=== PATIENT | male | born 1960 | race Caucasian/White ===

== ENCOUNTER 2018-09-06 18:22 | Observation (INO) | payer MEDICARE ==
--- NOTE | 2018-09-06 18:29 | PDOC ---
Rapid Medical Evaluation Time Seen by Provider: 09/06/18 18:28 Medical Evaluation: Allergies Allergy/AdvReac Type Severity Reaction Status Date / Time Penicillins Allergy Verified 06/19/11 10:15 09/06/18 18:28 I have performed a brief in-person evaluation of this patient. The patient presents with a chief complaint of: Dizziness. Was seen at [facility] yesterday for same and prescribed meclizine but states he feels worse now. No AGUAYO, blurry vision, slurred speech, focal weakness, CP or SOB Pertinent physical exam findings:Stable and in NAD I have ordered the following:labs The patient will proceed to the ED for further evaluation. 09/06/18 18:32 Discharge Disposition - Diagnosis Dizziness - Referrals - Patient Instructions - Post Discharge Activity
[2018-09-06 20:03] LABS: EPI CELLS 1.4 /HPF (0-5/HPF); HYALINE CASTS 6 /lpf (0-8); URINE APPEARANCE CLEAR; URINE BACTERIA 10.3 /hpf (NEGATIVE); URINE BILIRUBIN NEGATIVE (NEGATIVE); URINE COLOR YELLOW; URINE GLUCOSE (UA) 2+ (NEGATIVE); URINE KETONE TRACE (NEGATIVE); URINE LEUK ESTERASE NEGATIVE (NEGATIVE); URINE NITRITE NEGATIVE (NEGATIVE); URINE PROTEIN 2+ (NEGATIVE); URINE RBC 1 /hpf (0-4); URINE UROBILINOGEN 0.2 mg/dL (0.2-1.0); URINE WBC 2 /hpf (0-5)
[2018-09-06 20:30] LABS: ALBUMIN 3.9 g/dl (3.4-5.0); ALK PHOS 81 U/L (45-117); ANION GAP 12 MMOL/L (8-16); BILIRUBIN,TOTAL 0.3 mg/dL (0.2-1); BLOOD UREA NITROGEN 14.1 mg/dL (7-18); CALCIUM 9.6 mg/dL (8.5-10.1); CHLORIDE 98 mmol/L (98-107); CO2 27 mmol/L (21-32); CREATININE 1.2 mg/dL (0.55-1.3); GLUCOSE,RANDOM 277 mg/dL (74-106); POTASSIUM 4.1 mmol/L (3.5-5.1); SGOT/AST 11 U/L (15-37); SGPT/ALT 32 U/L (13-61); SODIUM 137 mmol/L (136-145); TOT PROT 7.3 g/dl (6.4-8.2)
[2018-09-06 21:18] LABS: HEMATOCRIT 43.9 % (35.4-49); HEMOGLOBIN 14.7 GM/dL (11.7-16.9); MCH 30.7 pg (25.7-33.7); MCHC 33.6 g/dl (32.0-35.9); MEAN CELL VOLUME 91.3 fl (80-96); PLATELET COUNT 290 K/MM3 (134-434); RBC 4.81 M/mm3 (4.00-5.60); RDW 12.7 % (11.9-15.9); WHITE BLOOD COUNT 7.7 K/mm3 (4.0-10.0)
[2018-09-06 21:19] LABS: EOS % 0.1 % (0-4.5); LYMPH % 17.5 % (8-40); MEAN PLT VOLUME 8.2 fl (7.5-11.1)
[2018-09-06 21:20] LABS: BASO % 0.4 % (0-2.0)
[2018-09-06] MEDS ORDERED: SODIUM CHLORIDE 1,000 ML IV STA (21:36)
--- NOTE | 2018-09-06 22:09 | PN ---
Teaching Attending Note Name of Resident: Isaac Sosa ATTENDING PHYSICIAN STATEMENT I saw and evaluated the patient. I reviewed the resident's note and discussed the case with the resident. I agree with the resident's findings and plan as documented. SUBJECTIVE: Patient is a 58 year old man with PMH of HTN, NIDDM, CAD/SC (5 stents), carpal tunnel syndrome and obesity who presents with a chief complaint of dizziness. Was seen at [facility] yesterday for same and prescribed meclizine but states he feels worse now. No headache, blurry vision, slurred speech, focal weakness, chest pain or SOB. Patient used to be a mechanic industrial truck, but stopped due to carpal tunnel syndrome and is now on social security disability. OBJECTIVE: Alert and orthostatic Vital Signs Period Temp Pulse Resp BP Sys/Rust Pulse Ox Last 24 Hr 98.4 F 78-103 18 123-169/88-94 97-98 HEENT: No Jaundice, eye redness or discharge, PERRLA, EOMI. Normocephalic, atraumatic. External ears are normal and hearing is grossly intact. No nasal discharge. Neck: Supple, nontender. No palpable adenopathy or thyromegaly. No JVD Chest: Good effort. Clear to auscultation and percussion. Heart: Regular. No S3, rub or murmur Abdomen: Not distended, soft, nontender and no HSM. No rebound or guarding. Normal bowel sounds. Ext: Peripheral pulses intact. No leg edema. Skin: Warm and dry. No petechiae, rash or ecchymosis. Neuro: Alert. Oriented x3. CN 2-12 grossly intact. Sensation grossly intact in all four extremities and DTR are symmetric. Unsteady gait. Psych: Appropriate mood and affect. Good insight. Current Medications Generic Name Dose Route Start Last Admin Trade Name Freq PRN Reason Stop Dose Admin Sodium Chloride 1,000 mls @ 1,000 mls/hr 09/06/18 21:36 09/06/18 21:59 Normal Saline - IV 09/06/18 22:35 1,000 mls/hr ASDIR STA Administration Home Medications Medication Instructions Recorded Carvedilol [Coreg -] 25 mg PO BID 09/06/18 Clopidogrel Bisulfate [Plavix -] 75 mg PO DAILY 09/06/18 Glipizide [Glucotrol Xl] 10 mg PO BID 09/06/18 Hydrochlorothiazide [Hctz -] 12.5 mg PO DAILY 09/06/18 Lisinopril [Prinivil] 20 mg PO DAILY 09/06/18 Meclizine HCl [Antivert -] 25 mg PO TID PRN 09/06/18 Metformin HCl [Glucophage] 1,000 mg PO BID 09/06/18 Abnormal Lab Results 09/06/18 09/06/18 19:30 19:30 Random Glucose 277 H AST 11 L Ur Specific [place] 1.037 H Urine Protein 2+ H Urine Glucose (UA) 2+ H Urine Ketones Trace H ASSESSMENT AND PLAN: 1. Dizziness - Cause unclear. No acute abnormality on noncontrast head CT scan and CXR. EKG is NSR with no significant ST-T wave changes. Getting IV NS and will hold antihypertensive drugs for now. Continue meclizine. Will get MRI/MRA of brain, carotid doppler, ECHO and monitor him on telemetry. 2. Uncontrolled DM For now, we will hold the home diabetes drugs and implement sliding scale insulin regimen. Provide comprehensive diabetes care with patient teaching and counseling about the importance of adherence to prescribed diabetes regimen, euglycemia, eye care and foot care. 3. Obesity Counseled on the risks associated with obesity. Will provide patient all the necessary assistance, counseling and positive reinforcement to facilitate weight loss. Consult sales administration specialist. 4. Hypertension - Restart suitable outpatient antihypertensive drugs when clinically appropriate. Increase Lisinopril to 20 mg bid in view of proteinuria. Refer to nephrology for outpatient workup for proteinuria. Get spot urine protein/creatinine ratio. Revise regimen to ensure good BP control. Nonpharmacologic measures to control hypertension like weight loss, salt restriction and exercise discussed. 5. DVT prophylaxis - Lovenox 40 mg SQ q 24 hours. 6. Advance directives - Full code
--- NOTE | 2018-09-06 23:14 | PDOC ---
History of Present Illness - General Chief Complaint: Lightheaded Stated Complaint: DIZZINESS Time Seen by Provider: 09/06/18 18:28 History Source: Patient Exam Limitations: No Limitations Past History - Past Medical History Allergies/Adverse Reactions: Allergies Allergy/AdvReac Type Severity Reaction Status Date / Time No Known Allergies Allergy Verified 09/06/18 18:30 Home Medications: Ambulatory Orders Carvedilol [Coreg -] 25 mg PO BID 09/06/18 Clopidogrel Bisulfate [Plavix -] 75 mg PO DAILY 09/06/18 Glipizide [Glucotrol Xl] 10 mg PO BID 09/06/18 Hydrochlorothiazide [Hctz -] 12.5 mg PO DAILY 09/06/18 Lisinopril [Prinivil] 20 mg PO DAILY 09/06/18 Meclizine HCl [Antivert -] 25 mg PO TID PRN 09/06/18 Metformin HCl [Glucophage] 1,000 mg PO BID 09/06/18 COPD: No Diabetes: Yes HTN: Yes Psychiatric Problems: No - Surgical History Abdominal Surgery: No Appendectomy: No Cardiac Surgery: No Cholecystectomy: No Lung Surgery: No Neurologic Surgery: No Orthopedic Surgery: No - Suicide/Smoking/Psychosocial Hx Smoking History: Unknown if ever smoked Have you smoked in the past 12 months: No Hx Alcohol Use: No Drug/Substance Use Hx: No Substance Use Type: None Hx Substance Use Treatment: No *Physical Exam - Vital Signs Last Vital Signs Temp Pulse Resp BP Pulse Ox 98.4 F 90 18 130/91 98 09/06/18 18:33 09/06/18 22:00 09/06/18 18:33 09/06/18 22:00 09/06/18 21:31 - Physical Exam General Appearance: No: Apparent Distress HEENT: positive: EOMI, SHANE, Other (no nystagmus noted) Respiratory/Chest: positive: Lungs Clear, Normal Breath Sounds. negative: Respiratory Distress Cardiovascular: positive: Regular Rhythm, Regular Rate, S1, S2. negative: Murmur Gastrointestinal/Abdominal: positive: Normal Bowel Sounds, Soft. 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 negative: Facial Droop, Confused, Disoriented ED Treatment Course - LABORATORY CBC & Chemistry Diagram: 09/06/18 19:30 09/06/18 19:30 - ADDITIONAL ORDERS Additional order review: Laboratory Results 09/06/18 09/06/18 19:30 19:30 Sodium 137 Potassium 4.1 Chloride 98 Carbon Dioxide 27 Anion Gap 12 BUN 14.1 Creatinine 1.2 Est GFR (CKD-EPI)AfAm 77.33 Est GFR (CKD-EPI)NonAf 66.72 Random Glucose 277 H Calcium 9.6 Total Bilirubin 0.3 AST 11 L ALT 32 Alkaline Phosphatase 81 Creatine Kinase 68 Troponin I < 0.02 Total Protein 7.3 Albumin 3.9 Urine Color Yellow Urine Appearance Clear Urine pH 5.0 Ur Specific [place] 1.037 H Urine Protein 2+ H Urine Glucose (UA) 2+ H Urine Ketones Trace H Urine Blood Trace Urine Nitrite Negative Urine Bilirubin Negative Urine Urobilinogen 0.2 Ur Leukocyte Esterase Negative Urine WBC (Auto) 2 Urine RBC (Auto) 1 Urine Casts (Auto) 6 U Epithel Cells (Auto) 1.4 Urine Bacteria (Auto) 10.3 09/06/18 19:30 RBC 4.81 MCV 91.3 MCHC 33.6 RDW 12.7 MPV 8.2 D Neutrophils % 75.0 D Lymphocytes % 17.5 D Monocytes % 7.0 Eosinophils % 0.1 D Basophils % 0.4 - RADIOLOGY Radiology Studies Ordered: Category Date Time Status HEAD CT WITHOUT CONTRAST [CT] Stat CT Scan 09/06/18 20:32 Completed - Medications Given in the ED: ED Medications Discontinued Medications Generic Name Dose Route Start Last Admin Trade Name Freq PRN Reason Stop Dose Admin Sodium Chloride 1,000 mls @ 1,000 mls/hr 09/06/18 21:36 09/06/18 21:59 Normal Saline - IV 09/06/18 22:35 1,000 mls/hr ASDIR STA Administration Medical Decision Making - Medical Decision Making 58 y/o M hx of DM, HTN, carpal tunnel, [place] 2014 s/p PCI x3, then PCI x2 again 2016 presents with lightheadedness/vertigo from yesterday (feels more like lightheadedness), worse with standing. Went to [facility] yesterday, had bloodwork and EKG done which were normal; was prescribed Meclizine but it has not been helping. States today he is now feeling off balance. Dizziness is not with head movement. Denies fever, sob, cp, abd pain, n/v, visual changes, numbness/tingling/weakness of extremities, tinnitus, hearing loss. Patient orthostatic positive - given 1L of NS Labs reviewed and unremarkable EKG shows NSR at 80 bpm, baseline a bit poor, no ST-T elevation or depression noted, no ectopy D/W neurology, Dr. Torres - agrees with admission for further evaluation; agrees with MRI of brain for further evaluation Patient admitted 09/06/18 23:10 *DC/Admit/Observation/Transfer Diagnosis at time of Disposition: Dizziness - Discharge Dispostion Condition at time of disposition: Stable Decision to Admit order: Yes - Referrals Referrals: Aleks Piper MD [Primary Care Provider] - - Patient Instructions - Post Discharge Activity
[2018-09-06] MEDS ORDERED: LORazepam 1 MG TABLET PO ONE (23:28)
--- NOTE | 2018-09-07 | HP ---
CHIEF COMPLAINT:dizziness PCP: Dr Ca HISTORY OF PRESENT ILLNESS: 58 y/o M hx of DM, HTN, carpal tunnel, [place] 2015 s/p PCI x3, then PCI x2 again 2017 presents with lightheadedness/vertigo from yesterday (feels more like lightheadedness), worse with standing. Went to [facility] yesterday, had bloodwork and EKG done which were normal; was prescribed Meclizine but it has not been helping. States today he is now feeling off balance. Dizziness is not with head movement. Denies fever, sob, cp, abd pain, n/v, visual changes, numbness/tingling/weakness of extremities, tinnitus, hearing loss. one day of dizziness and imbalance when get up and walk never happened in the past , non positional Patient orthostatic positive - given 1L of NS Labs reviewed and unremarkable EKG shows NSR at 80 bpm, baseline a bit poor, no ST-T elevation or depression noted, no ectopy D/W neurology, Dr. Torres - agrees with admission for further evaluation; agrees with MRI of brain for further evaluation ER course was notable for: (1) Head Ct No acute pathology , MRI brain pending (2)cbc , cmp (3)1 L bolus Recent Travel: denies PAST MEDICAL HISTORY: HTN , DM , CAD S/P 5 stents , carpal tunnel syndrome B/L PAST SURGICAL HISTORY: S.P 5 stent , cataract Social History: disabled since 2011 due to CTS Smoking:denies Alcohol:denies Drugs: denies Family History: Mother stroke , father DM , HTN Allergies No Known Allergies Allergy (Verified 09/06/18 18:30) HOME MEDICATIONS: Home Medications Medication Instructions Recorded Carvedilol [Coreg -] 25 mg PO BID 09/06/18 Clopidogrel Bisulfate [Plavix -] 75 mg PO DAILY 09/06/18 Glipizide [Glucotrol Xl] 10 mg PO BID 09/06/18 Hydrochlorothiazide [Hctz -] 12.5 mg PO DAILY 09/06/18 Lisinopril [Prinivil] 20 mg PO DAILY 09/06/18 Meclizine HCl [Antivert -] 25 mg PO TID PRN 09/06/18 Metformin HCl [Glucophage] 1,000 mg PO BID 09/06/18 REVIEW OF SYSTEMS CONSTITUTIONAL: Absent: fever, chills, diaphoresis, generalized weakness, malaise, loss of appetite, weight change HEENT: Absent: rhinorrhea, nasal congestion, throat pain, throat swelling, difficulty swallowing, mouth swelling, ear pain, eye pain, visual changes CARDIOVASCULAR: Absent: chest pain, syncope, palpitations, irregular heart rate, lightheadedness , peripheral edema RESPIRATORY: Absent: cough, shortness of breath, dyspnea with exertion, orthopnea, wheezing, stridor, hemoptysis GASTROINTESTINAL: Absent: abdominal pain, abdominal distension, nausea, vomiting, diarrhea, constipation, melena, hematochezia GENITOURINARY: Absent: dysuria, frequency, urgency, hesitancy, hematuria, flank pain, genital pain MUSCULOSKELETAL: Absent: myalgia, arthralgia, joint swelling, back pain, neck pain SKIN: Absent: rash, itching, pallor HEMATOLOGIC/IMMUNOLOGIC: Absent: easy bleeding, easy bruising, lymphadenopathy, frequent infections ENDOCRINE: Absent: unexplained weight gain, unexplained weight loss, heat intolerance, cold intolerance NEUROLOGIC: Absent: headache, focal weakness or paresthesias, dizziness, unsteady gait, seizure, mental status changes, bladder or bowel incontinence PSYCHIATRIC: Absent: anxiety, depression, suicidal or homicidal ideation, hallucinations. PHYSICAL EXAMINATION Vital Signs - 24 hr 09/06/18 09/06/18 09/06/18 18:22 18:33 21:27 Temperature 98.4 F Pulse Rate 83 Pulse Rate [ Apical] Pulse Rate [ 103 H 78 Right side Supine] Respiratory 18 Rate Blood Pressure 169/88 Blood Pressure 127/89 157/92 [Right side Supine] Blood Pressure [Right] O2 Sat by Pulse 97 Oximetry (%) 09/06/18 09/06/18 09/06/18 21:31 21:59 22:00 Temperature Pulse Rate Pulse Rate [ 93 H 90 Apical] Pulse Rate [ Right side Supine] Respiratory Rate Blood Pressure Blood Pressure [Right side Supine] Blood Pressure 123/94 140/90 130/91 [Right] O2 Sat by Pulse 98 Oximetry (%) GENERAL: Awake, alert, and fully oriented, in no acute distress. HEAD: Normal with no signs of trauma. EYES: Pupils equal, round and reactive to light, extraocular movements intact, sclera anicteric, conjunctiva clear. EARS, NOSE, THROAT: Ears normal, nares patent, oropharynx clear without exudates. Moist mucous membranes. NECK: Normal range of motion, supple without lymphadenopathy, JVD, or masses. LUNGS: Breath sounds equal, clear to auscultation bilaterally. No wheezes, and no crackles. No accessory muscle use. HEART: Regular rate and rhythm, normal S1 and S2 without murmur, rub or gallop. ABDOMEN: obese, Soft, nontender, not distended, normoactive bowel sounds, no guarding, no rebound, no masses. MUSCULOSKELETAL: Normal range of motion at all joints. No bony deformities or tenderness. No CVA tenderness. UPPER EXTREMITIES: 2+ pulses, warm, well-perfused. No cyanosis. No clubbing. No peripheral edema. LOWER EXTREMITIES: 2+ pulses, warm, well-perfused. No calf tenderness. No peripheral edema. NEUROLOGICAL: Cranial nerves II-XII intact. Normal speech. imbalance gait.strength 5/5 upper and lower ext ,sensation intact , uvula mid line , no facial asymmetry PSYCHIATRIC: Cooperative. Good eye contact. Appropriate mood and affect. SKIN: Warm, dry, Laboratory Results - last 24 hr 09/06/18 09/06/18 09/06/18 19:30 19:30 19:30 WBC 7.7 RBC 4.81 Hgb 14.7 Hct 43.9 MCV 91.3 MCH 30.7 MCHC 33.6 RDW 12.7 Plt Count 290 D MPV 8.2 D Absolute Neuts (auto) 5.8 Neutrophils % 75.0 D Lymphocytes % 17.5 D Monocytes % 7.0 Eosinophils % 0.1 D Basophils % 0.4 Sodium 137 Potassium 4.1 Chloride 98 Carbon Dioxide 27 Anion Gap 12 BUN 14.1 Creatinine 1.2 Est GFR (CKD-EPI)AfAm 77.33 Est GFR (CKD-EPI)NonAf 66.72 Random Glucose 277 H Calcium 9.6 Total Bilirubin 0.3 AST 11 L ALT 32 Alkaline Phosphatase 81 Creatine Kinase 68 Troponin I < 0.02 Total Protein 7.3 Albumin 3.9 Urine Color Yellow Urine Appearance Clear Urine pH 5.0 Ur Specific [place] 1.037 H Urine Protein 2+ H Urine Glucose (UA) 2+ H Urine Ketones Trace H Urine Blood Trace Urine Nitrite Negative Urine Bilirubin Negative Urine Urobilinogen 0.2 Ur Leukocyte Esterase Negative Urine WBC (Auto) 2 Urine RBC (Auto) 1 Urine Casts (Auto) 6 U Epithel Cells (Auto) 1.4 Urine Bacteria (Auto) 10.3 CBC, BMP 09/06/18 19:30 09/06/18 19:30 ASSESSMENT/PLAN: 58 year old male with h/o CAD S/P 5 stents , HTN ,DM CTS presented to ED due to oe history of ataxia not improving with meclizine admitted to tele obs for further evaluation # Ataxia likely due to dehydration/orthoststics positive , r.o TIA , r.o arrhythmia * CT head negative , follow MRI brain w.o contrast * happened when get up and walk , non positional * Brain MRI ( has 5 cardiac stent ) stent card is with pt , no contraindication for MRI , * pt has claustrophobic will give 1 mg Ativan one hour before MRI * IV fluids bolus and maintenance * cont meclizine * dex-halpek negative , no tinnitus or hearing deficiency * re evaluate after hydration * Neuro cosulted Dr Torres recommend MRI w/o contrast and will see pt in AM * fall precaution * EKG with NSR with left axis deviation and left inferior infarct age undertermined , QTC 484 * Echo and carotid doppler in AM * # DM * hold oral agents , ISS , BGM ACHS, Diabetic diet # HTN * hold HCTz * resume lisinopril in and carvedilol # CAD S.P 5 stents not on blood thinners # H.o CTS # FEN * NS @ 75 * monbitor lytes * diabetic diet # proph * dvts : scds , hep sq # dispo * Tele obs Visit type - Emergency Visit Emergency Visit: Yes ED Registration Date: 09/06/18 Care time: The patient presented to the Emergency Department on the above date and was hospitalized for further evaluation of their emergent condition. - New Patient This patient is new to me today: Yes Date on this admission: 09/07/18 - Critical Care Critical Care patient: No
[2018-09-07] MEDS ORDERED: MECLIZINE HCL 25 MG TABLET (FP) PO PRN (00:10)
[2018-09-07] MEDS: SODIUM CHLORIDE 1,000 ML IV SCH ×2 (00:34→01:12)
[2018-09-07 00:58] LABS: N-TERMINAL BNP 227.4 pg/ml (5-125)
[2018-09-07] MEDS ORDERED: INSULIN (NOVOLOG) ASPART 100 UNITS/ML 10ML VIAL ONE ×2 (03:29→05:23)
[2018-09-07] MEDS ORDERED: Insulin (LOG) Aspart 100 UNITS/ML VIAL SQ ONE (03:39)
[2018-09-07 05:08] VITALS: BMI 38.8
[2018-09-07] MEDS: INSULIN SLIDING SCALE (NOVOLOG) 1 VIAL SQ SCH ×4 (06:16→22:22)
[2018-09-07] MEDS: HEPARIN NA (PORCINE) 5,000 UNITS/ML 1ML VIAL SQ SCH ×3 (06:16→22:22)
[2018-09-07] MEDS ORDERED: INSULIN SLIDING SCALE (NOVOLOG) 1 VIAL SQ SCH (07:00)
[2018-09-07 08:31] LABS: BASO % 0.5 % (0-2.0); EOS % 0.5 % (0-4.5); HEMATOCRIT 38.2 % (35.4-49); HEMOGLOBIN 13.3 GM/dL (11.7-16.9); LYMPH % 19.4 % (8-40); MCHC 34.7 g/dl (32.0-35.9); MEAN CELL VOLUME 89.2 fl (80-96); MONO % 8.8 % (3.8-10.2); NEUT % 70.8 % (42.8-82.8); PLATELET COUNT 250 K/MM3 (134-434); RBC 4.28 M/mm3 (4.00-5.60); RDW 12.5 % (11.9-15.9); WHITE BLOOD COUNT 6.3 K/mm3 (4.0-10.0)
[2018-09-07 09:01] LABS: ALBUMIN 3.4 g/dl (3.4-5.0); BILIRUBIN,TOTAL 0.5 mg/dL (0.2-1); CALCIUM 9.1 mg/dL (8.5-10.1); CREATININE 0.9 mg/dL (0.55-1.3); MAGNESIUM 1.9 mg/dL (1.8-2.4); PHOSPHOROUS 3.9 mg/dL (2.5-4.9); POTASSIUM 3.4 mmol/L (3.5-5.1); TOT PROT 6.5 g/dl (6.4-8.2)
[2018-09-07 09:09] LABS: INR 1.14 (0.83-1.09); PROTHROMBIN TIME (PATIENT) 13.5 SEC (9.7-13.0)
[2018-09-07 09:12] LABS: ACTIVATED PTT 32.2 SECONDS (25.2-36.5)
[2018-09-07] MEDS ORDERED: PT OWN MED DRAWER 7, Y5N ONE (10:20)
--- NOTE | 2018-09-07 10:29 | EKG ---
Test Reason : Blood Pressure : / mmHG Vent. Rate : 074 BPM Atrial Rate : 074 BPM P-R Int : 174 ms QRS Dur : 104 ms QT Int : 414 ms P-R-T Axes : 020 -37 089 degrees QTc Int : 459 ms NORMAL SINUS RHYTHM LEFT AXIS DEVIATION INFERIOR-POSTERIOR INFARCT (CITED ON OR BEFORE 06-SEP-2018) ABNORMAL ECG WHEN COMPARED WITH ECG OF 07-SEP-2018 01:05, NO SIGNIFICANT CHANGE WAS FOUND Confirmed by KALIA ABDUL MD ([id number]) on 09/07/2018 10:29:14 AM Referred By: Gustavo WEBBER Confirmed By:KALIA ABDUL MD
--- NOTE | 2018-09-07 10:35 | EKG ---
Test Reason : Blood Pressure : / mmHG Vent. Rate : 072 BPM Atrial Rate : 072 BPM P-R Int : 172 ms QRS Dur : 100 ms QT Int : 400 ms P-R-T Axes : 019 -37 051 degrees QTc Int : 438 ms NORMAL SINUS RHYTHM LEFT AXIS DEVIATION MINIMAL VOLTAGE CRITERIA FOR LVH, MAY BE NORMAL VARIANT INFERIOR-POSTERIOR INFARCT (CITED ON OR BEFORE 06-SEP-2018) NONSPECIFIC ST ABNORMALITY Confirmed by KALIA ABDUL MD ([id number]) on 09/07/2018 10:35:36 AM Referred By: Confirmed By:KALIA ABDUL MD
--- NOTE | 2018-09-07 11:17 | CONSULT ---
Consult - text type - Consultation Consultation Note: CHIEF COMPLAINT:dizziness PCP: Dr Ca HISTORY OF PRESENT ILLNESS: 58 y/o M hx of DM, HTN, carpal tunnel, MD 2015 s/p PCI x3, then PCI x2 again 2017, presented to ER with lightheadedness/vertigo day prior to admission ( feels more like lightheadedness), worsens with standing. Went to [facility] day prior to admission, had labs completed and EKG completed which were normal. Pt was prescribed Meclizine but stated that it has not been helping. Pt stated on admission that he is now feeling off balance; dizziness is not with head movementn non-positional. Patient orthostatic positive. Denied fever, sob, cp, abd pain, n/v, visual changes, numbness/tingling/weakness of extremities, tinnitus, hearing loss. Patient received 1L NS bolus in ER. Head Ct completed, mild to moderate periventricular and subcortical microvascular ischemic changes. Brain MRI ordered. Carotid Doppler completed, report pending. Stated that meclezine made his symptoms worse at [facility] and therefore can avoid this medication. Discussed with family at bedside as well. Recent Travel: denies PAST MEDICAL HISTORY: HTN , DM , CAD S/P 5 stents , carpal tunnel syndrome B/L PAST SURGICAL HISTORY: S.P 5 stent , cataract Social History: disabled since 2011 due to CTS Smoking:denies Alcohol:denies Drugs: denies Family History: Mother stroke , father DM , HTN Allergies Allergies Allergy/AdvReac Type Severity Reaction Status Date / Time No Known Allergies Allergy Verified 09/06/18 18:30 Ambulatory Orders Carvedilol [Coreg -] 25 mg PO BID 09/06/18 Clopidogrel Bisulfate [Plavix -] 75 mg PO DAILY 09/06/18 Glipizide [Glucotrol Xl] 10 mg PO BID 09/06/18 Hydrochlorothiazide [Hctz -] 12.5 mg PO DAILY 09/06/18 Lisinopril [Prinivil] 20 mg PO DAILY 09/06/18 Meclizine HCl [Antivert -] 25 mg PO TID PRN 09/06/18 Metformin HCl [Glucophage] 1,000 mg PO BID 09/06/18 Active Medications Carvedilol (Coreg -) 25 mg PO BID [facility] Last Admin: 06/22/19 11:19 Dose: 25 mg Clopidogrel Bisulfate (Plavix -) 75 mg PO DAILY [facility] Last Admin: 09/07/18 11:19 Dose: 75 mg Heparin Sodium (Porcine) (Heparin -) 5,000 unit SQ TID [facility] Last Admin: 09/07/18 06:16 Dose: 5,000 unit Sodium Chloride (Normal Saline -) 1,000 mls @ 100 mls/hr IV ASDIR [facility] Last Admin: 09/07/18 00:34 Dose: Not Given Sodium Chloride (Normal Saline -) 1,000 mls @ 75 mls/hr IV ASDIR [facility] Last Admin: 09/07/18 01:12 Dose: 75 mls/hr Insulin Aspart (Novolog Vial Sliding Scale -) 1 vial SQ ACHS [facility]; Protocol Last Admin: 09/07/18 06:16 Dose: 2 units Lisinopril (Prinivil) 20 mg PO DAILY [facility] Last Admin: 09/07/18 11:19 Dose: 20 mg Meclizine HCl (Antivert -) 25 mg PO TID PRN PRN Reason: vert REVIEW OF SYSTEMS CONSTITUTIONAL: Absent: fever, chills, diaphoresis, generalized weakness, malaise, loss of appetite, weight change HEENT: Absent: rhinorrhea, nasal congestion, throat pain, throat swelling, difficulty swallowing, mouth swelling, ear pain, eye pain, visual changes CARDIOVASCULAR: Absent: chest pain, syncope, palpitations, irregular heart rate, lightheadedness , peripheral edema RESPIRATORY: Absent: cough, shortness of breath, dyspnea with exertion, orthopnea, wheezing, stridor, hemoptysis GASTROINTESTINAL: Absent: abdominal pain, abdominal distension, nausea, vomiting, diarrhea, constipation, melena, hematochezia GENITOURINARY: Absent: dysuria, frequency, urgency, hesitancy, hematuria, flank pain, genital pain MUSCULOSKELETAL: Absent: myalgia, arthralgia, joint swelling, back pain, neck pain SKIN: Absent: rash, itching, pallor HEMATOLOGIC/IMMUNOLOGIC: Absent: easy bleeding, easy bruising, lymphadenopathy, frequent infections ENDOCRINE: Absent: unexplained weight gain, unexplained weight loss, heat intolerance, cold intolerance NEUROLOGIC: Absent: headache, focal weakness or paresthesias, dizziness, unsteady gait, seizure, mental status changes, bladder or bowel incontinence PSYCHIATRIC: Absent: anxiety, depression, suicidal or homicidal ideation, hallucinations. PHYSICAL EXAMINATION Vital Signs Temperature 98.5 F 09/07/18 06:00 Pulse Rate 69 09/07/18 06:00 Respiratory Rate 20 09/07/18 06:00 Blood Pressure 162/89 09/07/18 06:00 O2 Sat by Pulse Oximetry (%) 94 L 09/07/18 04:05 GENERAL: Awake, alert, and fully oriented, in no acute distress. HEAD: Normal with no signs of trauma. EYES: Pupils equal, round and reactive to light, extraocular movements intact, sclera anicteric, conjunctiva clear. EARS, NOSE, THROAT: Ears normal, nares patent, oropharynx clear without exudates. Moist mucous membranes. NECK: Normal range of motion, supple without lymphadenopathy, JVD, or masses. LUNGS: Breath sounds equal, clear to auscultation bilaterally. No wheezes, and no crackles. No accessory muscle use. HEART: Regular rate and rhythm, normal S1 and S2 without murmur, rub or gallop. ABDOMEN: obese, Soft, nontender, not distended, normoactive bowel sounds, no guarding, no rebound, no masses. MUSCULOSKELETAL: Normal range of motion at all joints. No bony deformities or tenderness. No CVA tenderness. UPPER EXTREMITIES: 2+ pulses, warm, well-perfused. No cyanosis. No clubbing. No peripheral edema. LOWER EXTREMITIES: 2+ pulses, warm, well-perfused. No calf tenderness. No peripheral edema. NEUROLOGICAL: Cranial nerves II-XII intact. Normal speech. imbalance gait.strength 5/5 upper and lower ext ,sensation intact , uvula mid line , no facial asymmetry PSYCHIATRIC: Cooperative. Good eye contact. Appropriate mood and affect. SKIN: Warm, dry, CBCD WBC 6.3 K/mm3 (4.0-10.0) 09/07/18 07:28 RBC 4.28 M/mm3 (4.00-5.60) 09/07/18 07:28 Hgb 13.3 GM/dL (11.7-16.9) 09/07/18 07:28 Hct 38.2 % (35.4-49) 09/07/18 07:28 MCV 89.2 fl (80-96) 09/07/18 07:28 MCHC 34.7 g/dl (32.0-35.9) 09/07/18 07:28 RDW 12.5 % (11.9-15.9) 09/07/18 07:28 Plt Count 250 K/MM3 (134-434) 09/07/18 07:28 MPV 8.0 fl (7.5-11.1) 09/07/18 07:28 CMP Sodium 140 mmol/L (136-145) 09/07/18 07:28 Potassium 3.4 mmol/L (3.5-5.1) L 09/07/18 07:28 Chloride 101 mmol/L (98-107) 09/07/18 07:28 Carbon Dioxide 31 mmol/L (21-32) 09/07/18 07:28 Anion Gap 8 MMOL/L (8-16) 09/07/18 07:28 BUN 12.0 mg/dL (7-18) 09/07/18 07:28 Creatinine 0.9 mg/dL (0.55-1.3) 09/07/18 07:28 Random Glucose 230 mg/dL (74-106) H 09/07/18 07:28 Calcium 9.1 mg/dL (8.5-10.1) 09/07/18 07:28 Total Bilirubin 0.5 mg/dL (0.2-1) 09/07/18 07:28 AST 10 U/L (15-37) L 09/07/18 07:28 ALT 28 U/L (13-61) 09/07/18 07:28 Alkaline Phosphatase 72 U/L (45-117) 09/07/18 07:28 Total Protein 6.5 g/dl (6.4-8.2) 09/07/18 07:28 Albumin 3.4 g/dl (3.4-5.0) 09/07/18 07:28 CARDIAC ENZYMES Creatine Kinase 68 U/L (26-308) 09/06/18 19:30 Troponin I < 0.02 ng/ml (0.00-0.05) 09/07/18 00:15 ASSESSMENT/PLAN: 58 y/o M hx of DM, HTN, carpal tunnel, MD 2015 s/p PCI x3, then PCI x2 again 2017, presented to ER with lightheadedness/vertigo day prior to admission ( feels more like lightheadedness), worsens with standing. Went to [place] day prior to admission, had labs completed and EKG completed which were normal. Pt was prescribed Meclizine but stated that it has not been helping. Pt stated on admission that he is now feeling off balance; dizziness is not with head movementn non-positional. Patient orthostatic positive. Denied fever, sob, cp, abd pain, n/v, visual changes, numbness/tingling/weakness of extremities, tinnitus, hearing loss. Patient received 1L NS bolus in ER. Head Ct completed, mild to moderate periventricular and subcortical microvascular ischemic changes. Brain MRI ordered. Carotid Doppler completed, report pending. COntinue hydration, physical therapy. Fall precautions. Avoid meclezine though would think it would help. Can try low dose valium 2mg which can help with dizzyness if symptoms don't improve.
[2018-09-07] MEDS: CLOPIDOGREL BISULFATE 75 MG TABLET (FP) PO SCH (11:19)
[2018-09-07] MEDS: CARVEDILOL 25 MG TABLET (FP) PO SCH ×2 (11:19→22:22)
[2018-09-07] MEDS: LISINOPRIL 20 MG TABLET (FP) PO SCH (11:19)
--- NOTE | 2018-09-07 11:52 | PN ---
Progress Note, Physician Chief Complaint: Dizziness Ataxia HTN History of Present Illness: Previous notes and events reviewed awake and alert NAD Carotid US done pending Brain MRI continue to have dizziness while standing denies chest pain or SOB trop neg x 2 - Current Medication List Current Medications: Active Medications Carvedilol (Coreg -) 25 mg PO BID [facility] Last Admin: 09/07/18 11:19 Dose: 25 mg Clopidogrel Bisulfate (Plavix -) 75 mg PO DAILY [facility] Last Admin: 09/07/18 11:19 Dose: 75 mg Heparin Sodium (Porcine) (Heparin -) 5,000 unit SQ TID [facility] Last Admin: 09/07/18 06:16 Dose: 5,000 unit Sodium Chloride (Normal Saline -) 1,000 mls @ 100 mls/hr IV ASDIR [facility] Last Admin: 09/07/18 00:34 Dose: Not Given Sodium Chloride (Normal Saline -) 1,000 mls @ 75 mls/hr IV ASDIR [facility] Last Admin: 09/07/18 01:12 Dose: 75 mls/hr Insulin Aspart (Novolog Vial Sliding Scale -) 1 vial SQ ACHS [facility]; Protocol Last Admin: 09/07/18 06:16 Dose: 2 units Lisinopril (Prinivil) 20 mg PO DAILY [facility] Last Admin: 09/07/18 11:19 Dose: 20 mg Meclizine HCl (Antivert -) 25 mg PO TID PRN PRN Reason: vert - Objective Vital Signs: Vital Signs Temperature 98.5 F 09/07/18 06:00 Pulse Rate 69 09/07/18 06:00 Respiratory Rate 20 09/07/18 06:00 Blood Pressure 162/89 09/07/18 06:00 O2 Sat by Pulse Oximetry (%) 94 L 09/07/18 04:05 Constitutional: Yes: No Distress, Calm Eyes: Yes: Conjunctiva Clear HENT: Yes: Atraumatic Cardiovascular: Yes: Regular Rate and Rhythm Respiratory: Yes: Regular, CTA Bilaterally Gastrointestinal: Yes: Normal Bowel Sounds, Soft Musculoskeletal: Yes: Muscle Weakness Extremities: Yes: WNL Edema: No Neurological: Yes: Alert, Oriented Psychiatric: Yes: Alert, Oriented Labs: CBC, BMP 09/07/18 07:28 09/07/18 07:28 INR, PTT INR 1.14 (0.83-1.09) H 09/07/18 07:28 - ....Imaging Cat Scan: Report Reviewed Problem List - Problems (1) HTN (hypertension) Assessment/Plan: -Carvedilol, Lisinopril -low Na diet Code(s): I10 - ESSENTIAL (PRIMARY) HYPERTENSION (2) Diabetes mellitus Assessment/Plan: -BGM ACHS -ISS -HgA1c 7.4% -holding oral agents--will resume on discharge -diabetic diet Code(s): E11.9 - TYPE 2 DIABETES MELLITUS WITHOUT COMPLICATIONS (3) Dizziness Assessment/Plan: -Neurology on board -meclizine -Head CT scan negative for acute pathology -Carotid US done, pending official read -Brain MRI/MRA and Neck MRI ordered Code(s): R42 - DIZZINESS AND GIDDINESS (4) CAD (coronary artery disease) Assessment/Plan: -Plavix Code(s): I25.10 - ATHSCL HEART DISEASE OF [place] CORONARY ARTERY W/O ANG PCTRS Assessment/Plan see problem list dvt ppx
--- NOTE | 2018-09-07 12:44 | EKG ---
Test Reason : Blood Pressure : / mmHG Vent. Rate : 080 BPM Atrial Rate : 080 BPM P-R Int : 176 ms QRS Dur : 102 ms QT Int : 420 ms P-R-T Axes : 023 -46 034 degrees QTc Int : 484 ms POOR DATA QUALITY, INTERPRETATION MAY BE ADVERSELY AFFECTED NORMAL SINUS RHYTHM LEFT AXIS DEVIATION MINIMAL VOLTAGE CRITERIA FOR LVH, MAY BE NORMAL VARIANT INFERIOR-POSTERIOR INFARCT , AGE UNDETERMINED ABNORMAL ECG NO PREVIOUS ECGS AVAILABLE Confirmed by KALIA ABDUL MD ([id number]) on 09/07/2018 12:44:21 PM Referred By: Confirmed By:KALIA ABDUL MD
--- NOTE | 2018-09-07 17:26 | HOSP ---
Physical Examination Vital Signs: Vital Signs Temperature 97.8 F 09/07/18 14:00 Pulse Rate 76 09/07/18 14:00 Respiratory Rate 20 09/07/18 09:00 Blood Pressure 157/92 09/07/18 14:00 O2 Sat by Pulse Oximetry (%) 94 L 09/07/18 09:00 Labs: CBC, BMP 09/07/18 07:28 09/07/18 07:28 Hospitalist Encounter Assessment: Elevated BP 172/101 -reordered home med HCTZ 12.5mg now and to continue daily -will monitor
[2018-09-07] MEDS ORDERED: HYDROCHLOROTHIAZIDE 12.5 MG CAPSULE (FP) PO SCH (17:30)
[2018-09-08] MEDS: SODIUM CHLORIDE 1,000 ML IV SCH ×2 (01:01→09:39)
[2018-09-08] MEDS: LISINOPRIL 20 MG TABLET (FP) PO SCH ×2 (06:37→09:42)
[2018-09-08] MEDS: HEPARIN NA (PORCINE) 5,000 UNITS/ML 1ML VIAL SQ SCH ×3 (06:37→21:58)
[2018-09-08] MEDS: INSULIN SLIDING SCALE (NOVOLOG) 1 VIAL SQ SCH ×4 (06:38→21:58)
[2018-09-08 07:31] LABS: HEMATOCRIT 40.1 % (35.4-49); HEMOGLOBIN 13.8 GM/dL (11.7-16.9); MCH 30.7 pg (25.7-33.7); MCHC 34.4 g/dl (32.0-35.9); PLATELET COUNT 264 K/MM3 (134-434); RDW 12.4 % (11.9-15.9); WHITE BLOOD COUNT 6.3 K/mm3 (4.0-10.0)
[2018-09-08 07:58] LABS: ALBUMIN 3.6 g/dl (3.4-5.0); BILIRUBIN,TOTAL 0.6 mg/dL (0.2-1); BLOOD UREA NITROGEN 12.5 mg/dL (7-18); CREATININE 0.9 mg/dL (0.55-1.3); POTASSIUM 3.5 mmol/L (3.5-5.1); TOT PROT 6.8 g/dl (6.4-8.2)
[2018-09-08] MEDS: CLOPIDOGREL BISULFATE 75 MG TABLET (FP) PO SCH (09:41)
[2018-09-08] MEDS: CARVEDILOL 25 MG TABLET (FP) PO SCH ×2 (09:41→21:58)
[2018-09-08] MEDS: diazePAM 2 MG TABLET PO PRN ×2 (09:48→17:49)
[2018-09-08] MEDS: HYDROCHLOROTHIAZIDE 12.5 MG CAPSULE (FP) PO SCH (10:28)
--- NOTE | 2018-09-08 10:54 | PN ---
Progress Note, Physician Chief Complaint: Dizziness Ataxia HTN History of Present Illness: Previous notes and events reviewed awake and alert NAD continue to have dizziness while standing denies chest pain or SOB trop neg x 2 - Current Medication List Current Medications: Active Medications Carvedilol (Coreg -) 25 mg PO BID [facility] Last Admin: 09/08/18 09:41 Dose: 25 mg Clopidogrel Bisulfate (Plavix -) 75 mg PO DAILY [facility] Last Admin: 09/08/18 09:41 Dose: 75 mg Diazepam (Valium -) 2 mg PO Q8H PRN PRN Reason: DIZZYNESS Last Admin: 09/08/18 09:48 Dose: 2 mg Heparin Sodium (Porcine) (Heparin -) 5,000 unit SQ TID [facility] Last Admin: 09/08/18 06:37 Dose: 5,000 unit Hydrochlorothiazide (Hctz -) 12.5 mg PO DAILY [facility] Last Admin: 09/08/18 10:28 Dose: 12.5 mg Sodium Chloride (Normal Saline -) 1,000 mls @ 100 mls/hr IV ASDIR [facility] Last Admin: 09/08/18 01:01 Dose: Not Given Sodium Chloride (Normal Saline -) 1,000 mls @ 75 mls/hr IV ASDIR [facility] Last Admin: 09/08/18 09:39 Dose: Not Given Insulin Aspart (Novolog Vial Sliding Scale -) 1 vial SQ ACHS [facility]; Protocol Last Admin: 09/08/18 06:38 Dose: 4 units Lisinopril (Prinivil) 20 mg PO DAILY [facility] Last Admin: 09/08/18 09:42 Dose: Not Given Meclizine HCl (Antivert -) 25 mg PO TID PRN PRN Reason: vert - Objective Vital Signs: Vital Signs Temperature 98.0 F 09/08/18 06:15 Pulse Rate 67 09/08/18 06:15 Respiratory Rate 20 09/08/18 09:00 Blood Pressure 180/97 H 09/08/18 06:15 O2 Sat by Pulse Oximetry (%) 98 09/08/18 09:00 Constitutional: Yes: No Distress, Calm Eyes: Yes: Conjunctiva Clear HENT: Yes: Atraumatic Cardiovascular: Yes: Regular Rate and Rhythm Respiratory: Yes: Regular, CTA Bilaterally Gastrointestinal: Yes: Normal Bowel Sounds, Soft Musculoskeletal: Yes: WNL Extremities: Yes: WNL Edema: No Neurological: Yes: Alert, Oriented Psychiatric: Yes: Alert, Oriented Labs: CBC, BMP 09/08/18 06:50 09/08/18 06:50 INR, PTT INR 1.14 (0.83-1.09) H 09/07/18 07:28 Problem List - Problems (1) HTN (hypertension) Assessment/Plan: -Carvedilol, Lisinopril, HCTZ -low Na diet Code(s): I10 - ESSENTIAL (PRIMARY) HYPERTENSION (2) Diabetes mellitus Assessment/Plan: -BGM ACHS -ISS -HgA1c 7.4% -holding oral agents--will resume on discharge -diabetic diet Code(s): E11.9 - TYPE 2 DIABETES MELLITUS WITHOUT COMPLICATIONS (3) Dizziness Assessment/Plan: -Neurology on board -Valium -Head CT scan negative for acute pathology -Carotid US done, pending official read Code(s): R42 - DIZZINESS AND GIDDINESS (4) CAD (coronary artery disease) Assessment/Plan: -Plavix Code(s): I25.10 - ATHSCL HEART DISEASE OF [place] CORONARY ARTERY W/O ANG PCTRS Assessment/Plan see problem list dvt ppx D/C home in AM if repeat Brain CT normal
--- NOTE | 2018-09-08 11:01 | PN ---
Progress Note (short form) - Note Progress Note: Neurology CHIEF COMPLAINT:dizziness PCP: Dr Ca HISTORY OF PRESENT ILLNESS: 58 y/o M hx of DM, HTN, carpal tunnel, [place] 2014 s/p PCI x3, then PCI x2 again 2017, presented to ER with lightheadedness/vertigo day prior to admission ( feels more like lightheadedness), worsens with standing. Went to [facility] day prior to admission, had labs completed and EKG completed which were normal. Pt was prescribed Meclizine but stated that it has not been helping. Pt stated on admission that he is now feeling off balance; dizziness is not with head movement non-positional. Patient orthostatic positive. Denied fever, sob, cp, abd pain, n/v, visual changes, numbness/tingling/weakness of extremities, tinnitus, hearing loss. Patient received 1L NS bolus in ER. Head Ct completed, mild to moderate periventricular and subcortical microvascular ischemic changes. Brain MRI ordered. Carotid Doppler completed, report pending. Stated that meclezine made his symptoms worse at [facility] and therefore can avoid this medication. Discussed with family at bedside as well. Due to stents MRI not able to be done, discussed with family to have repeat CT. Is doing better and less symptomatic, but will obtain follow up imaging to confirm no infarct. Discussed with primary as well. Had ordered valium low dose which may also be helping. Allergies Allergies Allergy/AdvReac Type Severity Reaction Status Date / Time No Known Allergies Allergy Verified 09/06/18 18:30 Ambulatory Orders Carvedilol [Coreg -] 25 mg PO BID 09/06/18 Clopidogrel Bisulfate [Plavix -] 75 mg PO DAILY 09/06/18 Glipizide [Glucotrol Xl] 10 mg PO BID 09/06/18 Hydrochlorothiazide [Hctz -] 12.5 mg PO DAILY 09/06/18 Lisinopril [Prinivil] 20 mg PO DAILY 09/06/18 Meclizine HCl [Antivert -] 25 mg PO TID PRN 09/06/18 Metformin HCl [Glucophage] 1,000 mg PO BID 09/06/18 Active Medications Carvedilol (Coreg -) 25 mg PO BID [facility] Last Admin: 09/08/18 09:41 Dose: 25 mg Clopidogrel Bisulfate (Plavix -) 75 mg PO DAILY [facility] Last Admin: 09/08/18 09:41 Dose: 75 mg Diazepam (Valium -) 2 mg PO Q8H PRN PRN Reason: DIZZYNESS Last Admin: 09/08/18 09:48 Dose: 2 mg Heparin Sodium (Porcine) (Heparin -) 5,000 unit SQ TID [facility] Last Admin: 09/08/18 06:37 Dose: 5,000 unit Hydrochlorothiazide (Hctz -) 12.5 mg PO DAILY [facility] Last Admin: 09/08/18 10:28 Dose: 12.5 mg Sodium Chloride (Normal Saline -) 1,000 mls @ 100 mls/hr IV ASDIR [facility] Last Admin: 09/08/18 01:01 Dose: Not Given Sodium Chloride (Normal Saline -) 1,000 mls @ 75 mls/hr IV ASDIR [facility] Last Admin: 09/08/18 09:39 Dose: Not Given Insulin Aspart (Novolog Vial Sliding Scale -) 1 vial SQ ACHS [facility]; Protocol Last Admin: 09/08/18 06:38 Dose: 4 units Lisinopril (Prinivil) 20 mg PO DAILY [facility] Last Admin: 09/08/18 09:42 Dose: Not Given Meclizine HCl (Antivert -) 25 mg PO TID PRN PRN Reason: vert PHYSICAL EXAMINATION Vital Signs Temperature 98.0 F 09/08/18 06:15 Pulse Rate 67 09/08/18 06:15 Respiratory Rate 20 09/08/18 09:00 Blood Pressure 180/97 H 09/08/18 06:15 O2 Sat by Pulse Oximetry (%) 98 09/08/18 09:00 GENERAL: Awake, alert, and fully oriented, in no acute distress. HEAD: Normal with no signs of trauma. EYES: Pupils equal, round and reactive to light, extraocular movements intact, sclera anicteric, conjunctiva clear. EARS, NOSE, THROAT: Ears normal, nares patent, oropharynx clear without exudates. Moist mucous membranes. NECK: Normal range of motion, supple without lymphadenopathy, JVD, or masses. LUNGS: Breath sounds equal, clear to auscultation bilaterally. No wheezes, and no crackles. No accessory muscle use. HEART: Regular rate and rhythm, normal S1 and S2 without murmur, rub or gallop. ABDOMEN: obese, Soft, nontender, not distended, normoactive bowel sounds, no guarding, no rebound, no masses. MUSCULOSKELETAL: Normal range of motion at all joints. No bony deformities or tenderness. No CVA tenderness. UPPER EXTREMITIES: 2+ pulses, warm, well-perfused. No cyanosis. No clubbing. No peripheral edema. LOWER EXTREMITIES: 2+ pulses, warm, well-perfused. No calf tenderness. No peripheral edema. NEUROLOGICAL: Cranial nerves II-XII intact. Normal speech. imbalance gait.strength 5/5 upper and lower ext ,sensation intact , uvula mid line , no facial asymmetry PSYCHIATRIC: Cooperative. Good eye contact. Appropriate mood and affect. SKIN: Warm, dry, CBCD WBC 6.3 K/mm3 (4.0-10.0) 09/08/18 06:50 RBC 4.50 M/mm3 (4.00-5.60) 09/08/18 06:50 Hgb 13.8 GM/dL (11.7-16.9) 09/08/18 06:50 Hct 40.1 % (35.4-49) 09/08/18 06:50 MCV 89.0 fl (80-96) 09/08/18 06:50 MCHC 34.4 g/dl (32.0-35.9) 09/08/18 06:50 RDW 12.4 % (11.9-15.9) 09/08/18 06:50 Plt Count 264 K/MM3 (134-434) 09/08/18 06:50 MPV 8.0 fl (7.5-11.1) 09/08/18 06:50 CMP Sodium 138 mmol/L (136-145) 09/08/18 06:50 Potassium 3.5 mmol/L (3.5-5.1) 09/08/18 06:50 Chloride 98 mmol/L (98-107) 09/08/18 06:50 Carbon Dioxide 31 mmol/L (21-32) 09/08/18 06:50 Anion Gap 10 MMOL/L (8-16) 09/08/18 06:50 BUN 12.5 mg/dL (7-18) 09/08/18 06:50 Creatinine 0.9 mg/dL (0.55-1.3) 09/08/18 06:50 Calcium 9.0 mg/dL (8.5-10.1) 09/08/18 06:50 Total Bilirubin 0.6 mg/dL (0.2-1) 09/08/18 06:50 AST 12 U/L (15-37) L 09/08/18 06:50 ALT 31 U/L (13-61) 09/08/18 06:50 Alkaline Phosphatase 75 U/L (45-117) 09/08/18 06:50 Total Protein 6.8 g/dl (6.4-8.2) 09/08/18 06:50 Albumin 3.6 g/dl (3.4-5.0) 09/08/18 06:50 Imaging Carotid Doppler - completed, report pending ASSESSMENT/PLAN: 58 y/o M hx of DM, HTN, carpal tunnel, [place] 2014 s/p PCI x3, then PCI x2 again 2017, presented to ER with lightheadedness/vertigo day prior to admission ( feels more like lightheadedness), worsens with standing. Went to [place] day prior to admission, had labs completed and EKG completed which were normal. Pt was prescribed Meclizine but stated that it has not been helping. Pt stated on admission that he is now feeling off balance; dizziness is not with head movementn non-positional. Patient orthostatic positive. Denied fever, sob, cp, abd pain, n/v, visual changes, numbness/tingling/weakness of extremities, tinnitus, hearing loss. Patient received 1L NS bolus in ER. Head Ct completed, mild to moderate periventricular and subcortical microvascular ischemic changes. Brain MRI ordered. Carotid Doppler completed, report pending. COntinue hydration, physical therapy. Fall precautions. Avoid meclezine though would think it would help. Discussed with family at bedside as well. Due to stents MRI not able to be done, discussed with family to have repeat CT. Is doing better and less symptomatic, but will obtain follow up imaging to confirm no infarct. Discussed with primary as well. Had ordered valium low dose which may also be helping.
--- NOTE | 2018-09-08 14:01 | CON.CARD ---
Consult Consult Specialty:: cardiology Reason for Consultation:: dizziness - History of Present Illness History of Present Illness: 58 yo M DM, HTN, ho STEMI 2015 sp 100% occlusion of left circumflex and 40-50% occlusion of mid LAD and 100% occlusion of D2. BMS stent placed. complicated by severe MR and required ECMO. In 2018 developed angina and had severe stenosis of mid and distal LAD sp ANGELA. At this time there was 70% mid Lcx stenosis. EF was 38% on ventriculogram and significant MR was not described. He is admitted with vertigo/dizziness worse when standing and improves when lying down - History Source History Provided By: Patient, Medical Record Limitations to Obtaining History: No Limitations - Past Medical History Cardio/Vascular: Yes: CAD, HTN, Mitral Insufficiency - Alcohol/Substance Use Hx Alcohol Use: No - Smoking History Smoking history: Unknown if ever smoked Have you smoked in the past 12 months: No Home Medications - Allergies Allergies/Adverse Reactions: Allergies Allergy/AdvReac Type Severity Reaction Status Date / Time No Known Allergies Allergy Verified 09/06/18 18:30 - Home Medications Home Medications: Ambulatory Orders Carvedilol [Coreg -] 25 mg PO BID 09/06/18 Clopidogrel Bisulfate [Plavix -] 75 mg PO DAILY 09/06/18 Glipizide [Glucotrol Xl] 10 mg PO BID 09/06/18 Hydrochlorothiazide [Hctz -] 12.5 mg PO DAILY 09/06/18 Lisinopril [Prinivil] 20 mg PO DAILY 09/06/18 Meclizine HCl [Antivert -] 25 mg PO TID PRN 09/06/18 Metformin HCl [Glucophage] 1,000 mg PO BID 09/06/18 Review of Systems - Review of Systems Constitutional: reports: No Symptoms Eyes: reports: No Symptoms HENT: reports: No Symptoms Neck: reports: No Symptoms Cardiovascular: denies: Chest Pain, Edema, Shortness of Breath Respiratory: denies: Cough, SOB, SOB on Exertion Gastrointestinal: reports: No Symptoms Neurological: reports: Unsteady Gait Vital Signs: Vital Signs Temperature 97.8 F 09/08/18 12:03 Pulse Rate 62 09/08/18 12:03 Respiratory Rate 18 09/08/18 12:03 Blood Pressure 174/91 H 09/08/18 12:03 O2 Sat by Pulse Oximetry (%) 98 09/08/18 09:00 Constitutional: Yes: Well Nourished, No Distress Eyes: Yes: WNL, Conjunctiva Clear HENT: Yes: Atraumatic, Normocephalic Neck: Yes: Supple, Trachea Midline Respiratory: Yes: Regular, CTA Bilaterally Gastrointestinal: Yes: Normal Bowel Sounds, Soft Cardiovascular: Yes: Regular Rate and Rhythm JVD: No Carotid Bruit: No PMI: Non-Displaced Heart Sounds: Yes: S1, S2 Murmur: No: Systolic Murmur, Diastolic Murmur Edema: No - Other Data Labs, Other Data: CBC, BMP 09/08/18 06:50 09/08/18 06:50 INR, PTT INR 1.14 (0.83-1.09) H 09/07/18 07:28 NSR old IWMI. Nonspecific t wave abnoramlity. Problem List - Problems (1) CAD (coronary artery disease) Code(s): I25.10 - ATHSCL HEART DISEASE OF [place] CORONARY ARTERY W/O ANG PCTRS (2) Dizziness Code(s): R42 - DIZZINESS AND GIDDINESS Assessment/Plan 58 M ho PR cardiogenic shock requiring ECMO-survived. SP BMS LCX and D2 in 2015 then ANGELA to LAD 2018. 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 Admitted with dizziness and vertigo. 1. CAD: Continue ACEI and BB. Add Lipitor 40mg qd Continue with plavix Echocardiogram 2. Vertigo MRI check orthostatic BP Neurology eval.
[2018-09-08] MEDS: ATORVASTATIN CA 40 MG TABLET (FP) PO SCH (21:58)
[2018-09-08] MEDS ORDERED: MELATONIN 5 MG TABLETS PO ONE (23:52)
[2018-09-09] MEDS: SODIUM CHLORIDE 1,000 ML IV SCH ×2 (01:00)
--- NOTE | 2018-09-09 03:58 | HOSP ---
Subjective - Review of Symptoms Events since last encounter: Hospitalist Encounter Notified by the RN that the patient reports having abdominal pain and constipation x 2 days, was asked to evaluate him. Subjective: Arrived to bedside, patient is asleep but arousable, alert and oriented x3. Patient reports having abdominal cramping which has been relieved since passing flatulence. Patient reports last BM 3 days ago. on exam: Abdomen obese, BS hypoactive in all quads, non-tender to palpation. Assessment: This is a 58 y/o man with a PMHx of: [place] cardiogenic shock requiring ECMO- survived. SP BMS LCX and D2 in 2014 then ANGELA to LAD 2018. Has residual LCx stenosis, HTN, DM. Admitted to Telemetry for dizziness and vertigo. Plan: Abd flat upright r/o ileus vs obstruction Primary team to f/u in am Gastrointestinal: Yes: Abdominal Pain, Constipation Physical Examination Vital Signs: Vital Signs Temperature 97.7 F 09/09/18 01:16 Pulse Rate 77 09/09/18 01:16 Respiratory Rate 20 09/09/18 01:16 Blood Pressure 141/96 09/09/18 01:16 O2 Sat by Pulse Oximetry (%) 95 09/08/18 22:00 Constitutional: Yes: Well Nourished, No Distress, Calm, Obese Eyes: Yes: WNL, Conjunctiva Clear, EOM Intact, PERRL HENT: Yes: WNL, Atraumatic, Normocephalic Neck: Yes: WNL, Supple, Trachea Midline Cardiovascular: Yes: WNL, Regular Rate and Rhythm, S1, S2 Respiratory: Yes: WNL, Regular, CTA Bilaterally Gastrointestinal: Yes: Soft, Abdomen, Obese, Hypoactive Bowel Sounds. No: Tenderness, Tenderness, Epigastrium, Tenderness, Rebound Renal/: Yes: WNL Breast(s): Yes: WNL Musculoskeletal: Yes: WNL Extremities: Yes: WNL Edema: No Peripheral Pulses WNL: Yes Integumentary: Yes: WNL Neurological: Yes: WNL, Alert, Oriented, Cran Nerves II-XII Intact ...Motor Strength: WNL Psychiatric: Yes: WNL, Alert, Oriented Labs: CBC, BMP 09/08/18 06:50 09/08/18 06:50 Laboratory Results - last 24 hr 09/08/18 09/08/18 09/08/18 06:37 06:50 06:50 WBC 6.3 RBC 4.50 Hgb 13.8 Hct 40.1 MCV 89.0 MCH 30.7 MCHC 34.4 RDW 12.4 Plt Count 264 MPV 8.0 Sodium 138 Potassium 3.5 Chloride 98 Carbon Dioxide 31 Anion Gap 10 BUN 12.5 Creatinine 0.9 Est GFR (CKD-EPI)AfAm 109.50 Est GFR (CKD-EPI)NonAf 94.48 POC Glucometer 278 Random Glucose 253 H Calcium 9.0 Total Bilirubin 0.6 AST 12 L ALT 31 Alkaline Phosphatase 75 Total Protein 6.8 Albumin 3.6 09/08/18 09/08/18 09/08/18 12:01 16:55 21:55 WBC RBC Hgb Hct MCV MCH MCHC RDW Plt Count MPV Sodium Potassium Chloride Carbon Dioxide Anion Gap BUN Creatinine Est GFR (CKD-EPI)AfAm Est GFR (CKD-EPI)NonAf POC Glucometer 246 264 275 Random Glucose Calcium Total Bilirubin AST ALT Alkaline Phosphatase Total Protein Albumin 09/09/18 03:01 WBC RBC Hgb Hct MCV MCH MCHC RDW Plt Count MPV Sodium Potassium Chloride Carbon Dioxide Anion Gap BUN Creatinine Est GFR (CKD-EPI)AfAm Est GFR (CKD-EPI)NonAf POC Glucometer 283 Random Glucose Calcium Total Bilirubin AST ALT Alkaline Phosphatase Total Protein Albumin Intake & Output 09/06/18 09/07/18 09/08/18 09/09/18 23:59 23:59 23:59 23:59 Intake Total 1925 1810 Output Total 300 800 Balance 1625 1010 Weight 117.934 kg 115.893 kg Current Medications Generic Name Dose Route Start Last Admin Trade Name Freq PRN Reason Stop Dose Admin Atorvastatin Calcium 40 mg 09/08/18 22:00 09/08/18 21:58 Lipitor - PO 40 mg HS RONALD Administration Carvedilol 25 mg 09/07/18 10:00 09/08/18 21:58 Coreg - PO 25 mg BID RONALD Administration Clopidogrel Bisulfate 75 mg 09/07/18 10:00 09/08/18 09:41 Plavix - PO 75 mg DAILY RONALD Administration Diazepam 2 mg 09/07/18 12:24 09/08/18 17:49 Valium - PO 2 mg Q8H PRN Administration DIZZYNESS Heparin Sodium (Porcine) 5,000 unit 09/07/18 06:00 09/08/18 21:58 Heparin - SQ 5,000 unit TID RONALD Administration Hydrochlorothiazide 12.5 mg 09/08/18 10:00 09/08/18 10:28 Hctz - PO 12.5 mg DAILY RONALD Administration Sodium Chloride 1,000 mls @ 100 mls/hr 09/07/18 00:00 09/08/18 01:01 Normal Saline - IV Not Given ASDIR RONALD Sodium Chloride 1,000 mls @ 75 mls/hr 09/07/18 00:15 09/08/18 09:39 Normal Saline - IV Not Given ASDIR RONALD Insulin Aspart 1 vial 09/07/18 01:13 09/08/18 21:58 Novolog Vial Sliding Scale - SQ 4 units ACHS RONALD Administration Protocol Lisinopril 20 mg 09/07/18 10:00 09/08/18 09:42 Prinivil PO Not Given DAILY RONALD Meclizine HCl 25 mg 09/07/18 00:10 Antivert - PO TID PRN vert
[2018-09-09] MEDS: HEPARIN NA (PORCINE) 5,000 UNITS/ML 1ML VIAL SQ SCH ×3 (06:48→22:05)
[2018-09-09] MEDS: INSULIN SLIDING SCALE (NOVOLOG) 1 VIAL SQ SCH ×4 (06:48→22:08)
[2018-09-09] MEDS: diazePAM 2 MG TABLET PO PRN (06:48)
[2018-09-09 07:12] LABS: HEMATOCRIT 42.7 % (35.4-49); HEMOGLOBIN 14.6 GM/dL (11.7-16.9); MCH 30.6 pg (25.7-33.7); MCHC 34.3 g/dl (32.0-35.9); MEAN CELL VOLUME 89.3 fl (80-96); MEAN PLT VOLUME 8.1 fl (7.5-11.1); PLATELET COUNT 293 K/MM3 (134-434); RBC 4.79 M/mm3 (4.00-5.60); RDW 12.6 % (11.9-15.9); WHITE BLOOD COUNT 7.6 K/mm3 (4.0-10.0)
[2018-09-09] MEDS: CARVEDILOL 25 MG TABLET (FP) PO SCH ×3 (07:13→22:05)
[2018-09-09 07:36] LABS: ALBUMIN 3.7 g/dl (3.4-5.0); BILIRUBIN,TOTAL 0.6 mg/dL (0.2-1); BLOOD UREA NITROGEN 18.1 mg/dL (7-18); CALCIUM 9.5 mg/dL (8.5-10.1); POTASSIUM 3.6 mmol/L (3.5-5.1); TOT PROT 7.2 g/dl (6.4-8.2)
--- NOTE | 2018-09-09 08:55 | PN ---
Progress Note (short form) - Note Progress Note: Neurology CHIEF COMPLAINT:dizziness PCP: Dr Ca HISTORY OF PRESENT ILLNESS: 58 y/o M hx of DM, HTN, carpal tunnel, [place] 2014 s/p PCI x3, then PCI x2 again 2017, presented to ER with lightheadedness/vertigo day prior to admission ( feels more like lightheadedness), worsens with standing. Went to [facility] day prior to admission, had labs completed and EKG completed which were normal. Pt was prescribed Meclizine but stated that it has not been helping. Pt stated on admission that he is now feeling off balance; dizziness is not with head movement non-positional. Patient orthostatic positive. Denied fever, sob, cp, abd pain, n/v, visual changes, numbness/tingling/weakness of extremities, tinnitus, hearing loss. Patient received 1L NS bolus in ER. Head Ct completed, mild to moderate periventricular and subcortical microvascular ischemic changes. Brain MRI ordered. Carotid Doppler completed, report pending. Stated that meclezine made his symptoms worse at [facility] and therefore can avoid this medication. Discussed with family at bedside as well. Due to stents MRI not able to be done, repeat CT completed, awaiting offical report. Is doing better and less symptomatic, echo being done at bedside. Had ordered valium low dose which may also be helping. Allergies Allergies Allergy/AdvReac Type Severity Reaction Status Date / Time No Known Allergies Allergy Verified 09/06/18 18:30 Ambulatory Orders Carvedilol [Coreg -] 25 mg PO BID 09/06/18 Clopidogrel Bisulfate [Plavix -] 75 mg PO DAILY 09/06/18 Glipizide [Glucotrol Xl] 10 mg PO BID 09/06/18 Hydrochlorothiazide [Hctz -] 12.5 mg PO DAILY 09/06/18 Lisinopril [Prinivil] 20 mg PO DAILY 09/06/18 Meclizine HCl [Antivert -] 25 mg PO TID PRN 09/06/18 Metformin HCl [Glucophage] 1,000 mg PO BID 09/06/18 Active Medications Carvedilol (Coreg -) 25 mg PO BID [facility] Last Admin: 09/08/18 09:41 Dose: 25 mg Clopidogrel Bisulfate (Plavix -) 75 mg PO DAILY [facility] Last Admin: 09/08/18 09:41 Dose: 75 mg Diazepam (Valium -) 2 mg PO Q8H PRN PRN Reason: DIZZYNESS Last Admin: 09/08/18 09:48 Dose: 2 mg Heparin Sodium (Porcine) (Heparin -) 5,000 unit SQ TID [facility] Last Admin: 09/08/18 06:37 Dose: 5,000 unit Hydrochlorothiazide (Hctz -) 12.5 mg PO DAILY [facility] Last Admin: 09/08/18 10:28 Dose: 12.5 mg Sodium Chloride (Normal Saline -) 1,000 mls @ 100 mls/hr IV ASDIR RONALD Last Admin: 09/08/18 01:01 Dose: Not Given Sodium Chloride (Normal Saline -) 1,000 mls @ 75 mls/hr IV ASDIR [facility] Last Admin: 09/08/18 09:39 Dose: Not Given Insulin Aspart (Novolog Vial Sliding Scale -) 1 vial SQ ACHS [facility]; Protocol Last Admin: 09/08/18 06:38 Dose: 4 units Lisinopril (Prinivil) 20 mg PO DAILY [facility] Last Admin: 09/08/18 09:42 Dose: Not Given Meclizine HCl (Antivert -) 25 mg PO TID PRN PRN Reason: vert PHYSICAL EXAMINATION Vital Signs Temperature 98.0 F 09/08/18 06:15 Pulse Rate 67 09/08/18 06:15 Respiratory Rate 20 09/08/18 09:00 Blood Pressure 180/97 H 09/08/18 06:15 O2 Sat by Pulse Oximetry (%) 98 09/08/18 09:00 GENERAL: Awake, alert, and fully oriented, in no acute distress. HEAD: Normal with no signs of trauma. EYES: Pupils equal, round and reactive to light, extraocular movements intact, sclera anicteric, conjunctiva clear. EARS, NOSE, THROAT: Ears normal, nares patent, oropharynx clear without exudates. Moist mucous membranes. NECK: Normal range of motion, supple without lymphadenopathy, JVD, or masses. LUNGS: Breath sounds equal, clear to auscultation bilaterally. No wheezes, and no crackles. No accessory muscle use. HEART: Regular rate and rhythm, normal S1 and S2 without murmur, rub or gallop. ABDOMEN: obese, Soft, nontender, not distended, normoactive bowel sounds, no guarding, no rebound, no masses. MUSCULOSKELETAL: Normal range of motion at all joints. No bony deformities or tenderness. No CVA tenderness. UPPER EXTREMITIES: 2+ pulses, warm, well-perfused. No cyanosis. No clubbing. No peripheral edema. LOWER EXTREMITIES: 2+ pulses, warm, well-perfused. No calf tenderness. No peripheral edema. NEUROLOGICAL: Cranial nerves II-XII intact. Normal speech. imbalance gait.strength 5/5 upper and lower ext ,sensation intact , uvula mid line , no facial asymmetry PSYCHIATRIC: Cooperative. Good eye contact. Appropriate mood and affect. SKIN: Warm, dry, CBCD WBC 6.3 K/mm3 (4.0-10.0) 09/08/18 06:50 RBC 4.50 M/mm3 (4.00-5.60) 09/08/18 06:50 Hgb 13.8 GM/dL (11.7-16.9) 09/08/18 06:50 Hct 40.1 % (35.4-49) 09/08/18 06:50 MCV 89.0 fl (80-96) 09/08/18 06:50 MCHC 34.4 g/dl (32.0-35.9) 09/08/18 06:50 RDW 12.4 % (11.9-15.9) 09/08/18 06:50 Plt Count 264 K/MM3 (134-434) 09/08/18 06:50 MPV 8.0 fl (7.5-11.1) 09/08/18 06:50 CMP Sodium 138 mmol/L (136-145) 09/08/18 06:50 Potassium 3.5 mmol/L (3.5-5.1) 09/08/18 06:50 Chloride 98 mmol/L (98-107) 09/08/18 06:50 Carbon Dioxide 31 mmol/L (21-32) 09/08/18 06:50 Anion Gap 10 MMOL/L (8-16) 09/08/18 06:50 BUN 12.5 mg/dL (7-18) 09/08/18 06:50 Creatinine 0.9 mg/dL (0.55-1.3) 09/08/18 06:50 Calcium 9.0 mg/dL (8.5-10.1) 09/08/18 06:50 Total Bilirubin 0.6 mg/dL (0.2-1) 09/08/18 06:50 AST 12 U/L (15-37) L 09/08/18 06:50 ALT 31 U/L (13-61) 09/08/18 06:50 Alkaline Phosphatase 75 U/L (45-117) 09/08/18 06:50 Total Protein 6.8 g/dl (6.4-8.2) 09/08/18 06:50 Albumin 3.6 g/dl (3.4-5.0) 09/08/18 06:50 Imaging Carotid Doppler - completed, report pending ASSESSMENT/PLAN: 58 y/o M hx of DM, HTN, carpal tunnel, [place] 2014 s/p PCI x3, then PCI x2 again 2016, presented to ER with lightheadedness/vertigo day prior to admission ( feels more like lightheadedness), worsens with standing. Went to [facility] day prior to admission, had labs completed and EKG completed which were normal. Pt was prescribed Meclizine but stated that it has not been helping. Pt stated on admission that he is now feeling off balance; dizziness is not with head movementn non-positional. Patient orthostatic positive. Denied fever, sob, cp, abd pain, n/v, visual changes, numbness/tingling/weakness of extremities, tinnitus, hearing loss. Patient received 1L NS bolus in ER. Head Ct completed, mild to moderate periventricular and subcortical microvascular ischemic changes. Brain MRI ordered. Carotid Doppler completed, report pending. COntinue hydration, physical therapy. Fall precautions. Avoid meclezine though would think it would help. Discussed with family at bedside as well. Due to stents MRI not able to be done, repeat CT completed, awaiting offical report. Is doing better and less symptomatic, echo being done at bedside. Had ordered valium low dose which may also be helping. Maintain adequate hydration, vestibular therapy as outpatient may be of benefit.
[2018-09-09] MEDS: LISINOPRIL 20 MG TABLET (FP) PO SCH (11:03)
[2018-09-09] MEDS: CLOPIDOGREL BISULFATE 75 MG TABLET (FP) PO SCH (11:03)
[2018-09-09] MEDS: HYDROCHLOROTHIAZIDE 12.5 MG CAPSULE (FP) PO SCH (11:03)
--- NOTE | 2018-09-09 11:27 | PN ---
Progress Note, Physician Chief Complaint: Dizziness History of Present Illness: complaining for mild dizziness when he sits at the edge of the bed echo done, awaiting results Seen by Neurology Pt is on HIV meds, but doesn't take them regularly, goes to [facility], has not been there in a while - Current Medication List Current Medications: Active Medications Atorvastatin Calcium (Lipitor -) 40 mg PO HS [facility] Last Admin: 09/08/18 21:58 Dose: 40 mg Carvedilol (Coreg -) 25 mg PO BID [facility] Last Admin: 09/09/18 11:06 Dose: Not Given Clopidogrel Bisulfate (Plavix -) 75 mg PO DAILY [facility] Last Admin: 09/09/18 11:03 Dose: 75 mg Diazepam (Valium -) 2 mg PO Q8H PRN PRN Reason: DIZZYNESS Last Admin: 09/09/18 06:48 Dose: 2 mg Emtricitabine/Rilpivirine/Tenofovir (Complera -) 1 each PO DAILY@0800 [facility] Heparin Sodium (Porcine) (Heparin -) 5,000 unit SQ TID [facility] Last Admin: 09/09/18 06:48 Dose: 5,000 unit Hydrochlorothiazide (Hctz -) 12.5 mg PO DAILY [facility] Last Admin: 09/09/18 11:03 Dose: 12.5 mg Sodium Chloride (Normal Saline -) 1,000 mls @ 100 mls/hr IV ASDIR [facility] Last Admin: 09/09/18 01:00 Dose: Not Given Sodium Chloride (Normal Saline -) 1,000 mls @ 75 mls/hr IV ASDIR [facility] Last Admin: 09/09/18 01:00 Dose: Not Given Insulin Aspart (Novolog Vial Sliding Scale -) [facility]; Protocol Last Admin: 09/09/18 06:48 Dose: 4 units Lisinopril (Prinivil) 20 mg PO DAILY [facility] Last Admin: 09/09/18 11:03 Dose: 20 mg Meclizine HCl (Antivert -) 25 mg PO TID PRN PRN Reason: vert - Objective Vital Signs: Vital Signs Temperature 98.1 F 09/09/18 06:00 Pulse Rate 70 09/09/18 06:00 Respiratory Rate 20 09/09/18 06:00 Blood Pressure 170/100 09/09/18 06:00 O2 Sat by Pulse Oximetry (%) 95 09/08/18 22:00 Constitutional: Yes: Well Nourished, No Distress, Calm, Obese Cardiovascular: Yes: Regular Rate and Rhythm Respiratory: Yes: Regular Gastrointestinal: Yes: WNL, Normal Bowel Sounds, Soft, Abdomen, Obese Musculoskeletal: Yes: WNL Extremities: Yes: WNL Edema: No Peripheral Pulses WNL: Yes Neurological: Yes: Alert, Oriented Psychiatric: Yes: Alert, Oriented Labs: CBC, BMP 09/09/18 06:25 09/09/18 06:25 INR, PTT INR 1.14 (0.83-1.09) H 09/07/18 07:28 Problem List - Problems (1) Constipation Assessment/Plan: -Add miralax daily Code(s): K59.00 - CONSTIPATION, UNSPECIFIED (2) HIV disease Assessment/Plan: -Continue complera -Encouraged compliance and implications of missing dosages Code(s): B20 - HUMAN IMMUNODEFICIENCY VIRUS [HIV] DISEASE Assessment/Plan (1) HTN (hypertension) Assessment/Plan: -Carvedilol, Lisinopril, HCTZ -low Na diet -D/C IVF Code(s): I10 - ESSENTIAL (PRIMARY) HYPERTENSION (2) Diabetes mellitus Assessment/Plan: -BGM ACHS -ISS -HgA1c 7.4% -resume glipizide -resume metformin upon discharge -diabetic low sodium diet Code(s): E11.9 - TYPE 2 DIABETES MELLITUS WITHOUT COMPLICATIONS (3) Dizziness Assessment/Plan: -Neurology on board -Valium -Unable to do MRI due to cardiac stents -Head CT scan negative for acute pathology -Carotid US-negative -Echo pending- d/c home if negative -check orthostatics Code(s): R42 - DIZZINESS AND GIDDINESS (4) CAD (coronary artery disease) Assessment/Plan: -Plavix Code(s): I25.10 - ATHSCL HEART DISEASE OF [place] CORONARY ARTERY W/O ANG PCTRS
[2018-09-09] MEDS ORDERED: EMTRICITAB/RILPIVIRINE/TENOFOV 1 EACH TABLET PO SCH (11:30)
[2018-09-09] MEDS ORDERED: PT OWN MED DRAWER 7, Y5N ONE (14:55)
[2018-09-09] MEDS: glipiZIDE 5 MG TABLET (FP) PO SCH ×2 (15:22→16:31)
[2018-09-09] MEDS: POLYETHYLENE GLYCOL 3350 119 GM BTL PO SCH (16:30)
--- NOTE | 2018-09-09 16:35 | PN ---
Progress Note, Physician History of Present Illness: seen and examined today in [facility]. no overnight events. no new complaints. feels well lying down but states when he gets up to walk he feels dizzy. - Current Medication List Current Medications: Active Medications Atorvastatin Calcium (Lipitor -) 40 mg PO HS [facility] Last Admin: 09/08/18 21:58 Dose: 40 mg Carvedilol (Coreg -) 25 mg PO BID [facility] Last Admin: 09/09/18 11:06 Dose: Not Given Clopidogrel Bisulfate (Plavix -) 75 mg PO DAILY [facility] Last Admin: 09/09/18 11:03 Dose: 75 mg Diazepam (Valium -) 2 mg PO Q8H PRN PRN Reason: DIZZYNESS Last Admin: 09/09/18 06:48 Dose: 2 mg Emtricitabine/Rilpivirine/Tenofovir (Complera -) 1 each PO DAILY@0800 [facility] Last Admin: 09/09/18 15:22 Dose: 1 each Glipizide (Glucotrol -) 10 mg PO BID@0700,1630 [facility] Last Admin: 09/09/18 15:22 Dose: 10 mg Heparin Sodium (Porcine) (Heparin -) 5,000 unit SQ TID [facility] Last Admin: 09/09/18 15:22 Dose: 5,000 unit Hydrochlorothiazide (Hctz -) 12.5 mg PO DAILY [facility] Last Admin: 09/09/18 11:03 Dose: 12.5 mg Insulin Aspart (Novolog Vial Sliding Scale -) 1 vial SQ [facility]; Protocol Last Admin: 09/09/18 13:49 Dose: 6 units Lisinopril (Prinivil) 20 mg PO DAILY [facility] Last Admin: 09/09/18 11:03 Dose: 20 mg Meclizine HCl (Antivert -) 25 mg PO TID PRN PRN Reason: vert Polyethylene Glycol (Miralax (For Daily Use) -) 17 gm PO DAILY [facility] - Objective Vital Signs: Vital Signs Temperature 98.6 F 09/09/18 14:00 Pulse Rate 71 09/09/18 14:00 Respiratory Rate 20 09/09/18 14:00 Blood Pressure 152/90 09/09/18 14:00 O2 Sat by Pulse Oximetry (%) 95 09/08/18 22:00 Constitutional: Yes: No Distress, Calm Eyes: Yes: Conjunctiva Clear, EOM Intact HENT: Yes: Atraumatic, Normocephalic Neck: Yes: Supple, Trachea Midline Cardiovascular: Yes: Regular Rate and Rhythm, S1, S2. No: Bradycardia, Tachycardia, Pulse Irregular, Bruit, JVD, Gallop, Murmur, Rub, S3, S4, Varicosities Respiratory: Yes: Regular, CTA Bilaterally. No: Rales, Rhonchi, Wheezes Gastrointestinal: Yes: Normal Bowel Sounds, Soft. No: Distention, Tenderness Extremities: Yes: WNL Edema: No Peripheral Pulses WNL: Yes Peripheral Pulses: Left Doralis Pedis: 2+, Right Dorsalis Pedis: 2+ Neurological: Yes: Alert, Oriented Psychiatric: Yes: Alert, Oriented Labs: CBC, BMP 09/09/18 06:25 09/09/18 06:25 INR, PTT INR 1.14 (0.83-1.09) H 09/07/18 07:28 - ....Imaging Chest X-ray: Report Reviewed, Image Reviewed EKG: Report Reviewed, Image Reviewed Other: Report Reviewed, Image Reviewed (tele-NSR, no sig arrhythmias recorded) Assessment/Plan 58 M ho [place] cardiogenic shock requiring ECMO-survived. SP BMS LCX and D2 in 2015 then ANGELA to LAD 2018. 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 Admitted with dizziness and vertigo. 1. CAD: Continue ACEI and BB. cont Lipitor 40mg qd Continue with plavix Echocardiogram pending 2. Vertigo Neurology eval done No events on tele Significant orthostatic hypotension Encourage adequate fluid intake Fup echo Slow rise from a seated or lying position
[2018-09-09] MEDS: ATORVASTATIN CA 40 MG TABLET (FP) PO SCH (22:05)
[2018-09-10] MEDS: glipiZIDE 5 MG TABLET (FP) PO SCH (06:34)
[2018-09-10] MEDS: HEPARIN NA (PORCINE) 5,000 UNITS/ML 1ML VIAL SQ SCH (06:34)
[2018-09-10] MEDS: INSULIN SLIDING SCALE (NOVOLOG) 1 VIAL SQ SCH (06:38)
--- NOTE | 2018-09-10 07:16 | ECHO ---
Name: COURTNEY ARCHULETA Exam:Adult Echocardiogram Study Date: 09/09/2018 08:12 AM Age: 58 yrs Reason For Study: 5 stent, syncope Height: 68 in Weight: 260 lb BSA: 2.3 m2 MMode/2D Measurements & Calculations IVSd: 1.3 cm Ao root diam: 4.2 cm LVIDd: 5.4 cm LA dimension: 5.2 cm LVIDs: 4.1 cm ACS: 2.9 cm LVPWd: 0.98 cm IVSs: 1.6 cm LVPWs: 0.81 cm EDV(Teich): 139.7 ml ESV(Teich): 73.2 ml Doppler Measurements & Calculations MV E max timothy: 36.4 cm/sec Ao V2 max: 97.0 cm/sec MV A max timothy: 78.0 cm/sec Ao max P.8 mmHg MV E/A: 0.47 Ao V2 mean: 78.0 cm/sec Ao mean P.5 mmHg Ao V2 VTI: 21.7 cm MR max timothy: 539.2 cm/sec Med Peak E' Timothy: 4.6 cm/sec MR max P.3 mmHg Med E/e': 7.9 Lat Peak E' Timothy: 6.4 cm/sec Lat E/e': 5.7 Procedure The study was technically adequate with some images being suboptimal in quality. Left Ventricle The left ventricle is normal in size. Ejection Fraction = 50-55%. Left ventricular systolic function is low normal. Grade I diastolic dysfunction, (abnormal relaxation pattern). Regional wall motion abnormalit ies cannot be excluded due to limited visualization. Right Ventricle The right ventricle is grossly normal size. The right ventricular systolic function is grossly normal . Atria The left atrium is moderately dilated. Right atrium not well visualized. Mitral Valve The mitral valve is grossly normal. There is mild mitral annular calcification. There is trace to mil d mitral regurgitation. Tricuspid Valve The tricuspid valve is not well visualized. There is trace tricuspid regurgitation. There was insuffi cient TR detected to calculate RV systolic pressure. Aortic Valve The aortic valve opens well. The aortic valve is trileaflet. Trace aortic regurgitation. Pulmonic Valve The pulmonic valve is not well visualized. Great Vessels Moderately dilated ascending aorta. 5.2 cm. Pericardium/Pleura There is no pericardial effusion. Interpretation Summary Moderate ascending aortic aneurysm seen, consider additional imaging studies to evaluate size of TAA. In comparison to LV gram EF assessment performed 2018, LV systolic function has improved. Trace aorti c regurgitation. There is trace tricuspid regurgitation. Moderately dilated ascending aorta. The right ventricle is grossly normal size. The right ventricular systolic function is grossly normal. Ejection Fraction = 50-55%. Grade I diastolic dysfunction, (abnormal relaxation pattern). The left ventricle is normal in size. Left ventricular systolic function is low normal. Moderate ascending aortic aneurysm seen, consider additional imaging studies to evaluate size of TAA. In comparison to LV gram EF assessment performed 2018, LV systolic function has improved. Tayo Singh MD 09/09/2018 12:15 PM
--- NOTE | 2018-09-10 08:40 | PN ---
Progress Note, Physician History of Present Illness: 8 M ho [place] cardiogenic shock requiring ECMO-survived. SP BMS LCX and D2 in 2015 then ANGELA to LAD 2018. 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 Admitted with dizziness and vertigo. Echocardiogram 09/09/18 low normal EF 50-55%, moderately dilated ascending aortic aneurysm 5.2cm trace to mild mr, trace AI/TR - Current Medication List Current Medications: Active Medications Atorvastatin Calcium (Lipitor -) 40 mg PO HS [facility] Last Admin: 09/09/18 22:05 Dose: 40 mg Carvedilol (Coreg -) 25 mg PO BID [facility] Last Admin: 09/09/18 22:05 Dose: 25 mg Clopidogrel Bisulfate (Plavix -) 75 mg PO DAILY [facility] Last Admin: 09/09/18 11:03 Dose: 75 mg Diazepam (Valium -) 2 mg PO Q8H PRN PRN Reason: DIZZYNESS Last Admin: 09/09/18 06:48 Dose: 2 mg Emtricitabine/Rilpivirine/Tenofovir (Complera -) 1 each PO DAILY@0800 [facility] Last Admin: 09/09/18 15:22 Dose: 1 each Glipizide (Glucotrol -) 10 mg PO BID@0700,1630 [facility] Last Admin: 09/10/18 06:34 Dose: 10 mg Heparin Sodium (Porcine) (Heparin -) 5,000 unit SQ TID [facility] Last Admin: 09/10/18 06:34 Dose: 5,000 unit Hydrochlorothiazide (Hctz -) 12.5 mg PO DAILY [facility] Last Admin: 09/09/18 11:03 Dose: 12.5 mg Insulin Aspart (Novolog Vial Sliding Scale -) 1 vial SQ ACHS [facility]; Protocol Last Admin: 09/10/18 06:38 Dose: 4 units Lisinopril (Prinivil) 20 mg PO DAILY [facility] Last Admin: 09/09/18 11:03 Dose: 20 mg Meclizine HCl (Antivert -) 25 mg PO TID PRN PRN Reason: vert Polyethylene Glycol (Miralax (For Daily Use) -) 17 gm PO DAILY [facility] Last Admin: 09/09/18 16:30 Dose: 17 grams - Objective Vital Signs: Vital Signs Temperature 97.8 F 09/10/18 05:00 Pulse Rate 59 L 09/10/18 05:00 Respiratory Rate 18 09/10/18 05:00 Blood Pressure 156/89 09/10/18 05:00 O2 Sat by Pulse Oximetry (%) 93 L 09/09/18 21:00 Constitutional: Yes: No Distress, Calm Eyes: Yes: EOM Intact HENT: Yes: Atraumatic, Normocephalic Neck: Yes: Supple, Trachea Midline Cardiovascular: Yes: Regular Rate and Rhythm Respiratory: Yes: CTA Bilaterally Gastrointestinal: Yes: Normal Bowel Sounds, Soft Breast(s): Yes: WNL Musculoskeletal: Yes: WNL Extremities: Yes: WNL Edema: No Peripheral Pulses WNL: Yes Labs: CBC, BMP 09/09/18 06:25 09/09/18 06:25 INR, PTT INR 1.14 (0.83-1.09) H 09/07/18 07:28 Assessment/Plan 8 M ho [place] cardiogenic shock requiring ECMO-survived. SP BMS LCX and D2 in 2014 then ANGELA to LAD 2017. 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 Admitted with dizziness and vertigo. 1. CAD: Continue ACEI and BB. cont Lipitor 40mg qd Continue with plavix Echocardiogram 09/09/18 low normal EF 50-55%, moderately dilated ascending aortic aneurysm 5.2cm trace to mild mr, trace AI/TR 2. Vertigo Neurology eval done No events on tele Significant orthostatic hypotension titrate all medications to standing blood pressure. decrease lisinopril to 10 mg daily. Encourage adequate fluid intake Slow rise from a seated or lying position 3. Aortic aneurysm seen on echo needs CT chest with contrast
--- NOTE | 2018-09-10 09:02 | PN ---
Progress Note (short form) - Note Progress Note: Neurology CHIEF COMPLAINT:dizziness PCP: Dr Ca HISTORY OF PRESENT ILLNESS: 58 y/o M hx of DM, HTN, carpal tunnel, MS 2014 s/p PCI x3, then PCI x2 again 2017, presented to ER with lightheadedness/vertigo day prior to admission ( feels more like lightheadedness), worsens with standing. Went to [facility] day prior to admission, had labs completed and EKG completed which were normal. Pt was prescribed Meclizine but stated that it has not been helping. Pt stated on admission that he is now feeling off balance; dizziness is not with head movement non-positional. Patient orthostatic positive. Denied fever, sob, cp, abd pain, n/v, visual changes, numbness/tingling/weakness of extremities, tinnitus, hearing loss. Patient received 1L NS bolus in ER. Head Ct completed, mild to moderate periventricular and subcortical microvascular ischemic changes. Brain MRI ordered. Carotid Doppler completed, report pending. Stated that meclezine made his symptoms worse at [facility] and therefore can avoid this medication. Discussed with family at bedside as well. Due to stents MRI not able to be done, repeat CT completed. Is doing better and less symptomatic, informed him that valium may be helping. Reviewed repeat CT head, no acute changes. Carotid doppler without hemodynamically significant stenosis. Allergies Allergies Allergy/AdvReac Type Severity Reaction Status Date / Time No Known Allergies Allergy Verified 09/06/18 18:30 Ambulatory Orders Carvedilol [Coreg -] 25 mg PO BID 09/06/18 Clopidogrel Bisulfate [Plavix -] 75 mg PO DAILY 09/06/18 Glipizide [Glucotrol Xl] 10 mg PO BID 09/06/18 Hydrochlorothiazide [Hctz -] 12.5 mg PO DAILY 09/06/18 Lisinopril [Prinivil] 20 mg PO DAILY 09/06/18 Meclizine HCl [Antivert -] 25 mg PO TID PRN 09/06/18 Metformin HCl [Glucophage] 1,000 mg PO BID 09/06/18 Active Medications Atorvastatin Calcium (Lipitor -) 40 mg PO HS [facility] Last Admin: 09/09/18 22:05 Dose: 40 mg Carvedilol (Coreg -) 25 mg PO BID [facility] Last Admin: 09/09/18 22:05 Dose: 25 mg Clopidogrel Bisulfate (Plavix -) 75 mg PO DAILY [facility] Last Admin: 09/09/18 11:03 Dose: 75 mg Diazepam (Valium -) 2 mg PO Q8H PRN PRN Reason: DIZZYNESS Last Admin: 09/09/18 06:48 Dose: 2 mg Emtricitabine/Rilpivirine/Tenofovir (Complera -) 1 each PO DAILY@0800 [facility] Last Admin: 09/09/18 15:22 Dose: 1 each Glipizide (Glucotrol -) 10 mg PO BID@0700,1630 [facility] Last Admin: 09/10/18 06:34 Dose: 10 mg Heparin Sodium (Porcine) (Heparin -) 5,000 unit SQ TID [facility] Last Admin: 09/10/18 06:34 Dose: 5,000 unit Hydrochlorothiazide (Hctz -) 12.5 mg PO DAILY [facility] Last Admin: 09/09/18 11:03 Dose: 12.5 mg Insulin Aspart (Novolog Vial Sliding Scale -) [address] [facility]; Protocol Last Admin: 09/10/18 06:38 Dose: 4 units Lisinopril (Prinivil) 20 mg PO DAILY [facility] Last Admin: 09/09/18 11:03 Dose: 20 mg Meclizine HCl (Antivert -) 25 mg PO TID PRN PRN Reason: vert Polyethylene Glycol (Miralax (For Daily Use) -) 17 gm PO DAILY [facility] Last Admin: 09/09/18 16:30 Dose: 17 grams PHYSICAL EXAMINATION Vital Signs Period Temp Pulse Resp BP Sys/Rust Pulse Ox Last 24 Hr 97.8 F-98.6 F 59-92 18-20 121-164/72-101 93 GENERAL: Awake, alert, and fully oriented, in no acute distress. HEAD: Normal with no signs of trauma. EYES: Pupils equal, round and reactive to light, extraocular movements intact, sclera anicteric, conjunctiva clear. EARS, NOSE, THROAT: Ears normal, nares patent, oropharynx clear without exudates. Moist mucous membranes. NECK: Normal range of motion, supple without lymphadenopathy, JVD, or masses. LUNGS: Breath sounds equal, clear to auscultation bilaterally. No wheezes, and no crackles. No accessory muscle use. HEART: Regular rate and rhythm, normal S1 and S2 without murmur, rub or gallop. ABDOMEN: obese, Soft, nontender, not distended, normoactive bowel sounds, no guarding, no rebound, no masses. MUSCULOSKELETAL: Normal range of motion at all joints. No bony deformities or tenderness. No CVA tenderness. UPPER EXTREMITIES: 2+ pulses, warm, well-perfused. No cyanosis. No clubbing. No peripheral edema. LOWER EXTREMITIES: 2+ pulses, warm, well-perfused. No calf tenderness. No peripheral edema. NEUROLOGICAL: Cranial nerves II-XII intact. Normal speech. imbalance gait.strength 5/5 upper and lower ext ,sensation intact , uvula mid line , no facial asymmetry PSYCHIATRIC: Cooperative. Good eye contact. Appropriate mood and affect. SKIN: Warm, dry, CBCD WBC 7.6 K/mm3 (4.0-10.0) 09/09/18 06:25 RBC 4.79 M/mm3 (4.00-5.60) 09/09/18 06:25 Hgb 14.6 GM/dL (11.7-16.9) 09/09/18 06:25 Hct 42.7 % (35.4-49) 09/09/18 06:25 MCV 89.3 fl (80-96) 09/09/18 06:25 MCHC 34.3 g/dl (32.0-35.9) 09/09/18 06:25 RDW 12.6 % (11.9-15.9) 09/09/18 06:25 Plt Count 293 K/MM3 (134-434) 09/09/18 06:25 MPV 8.1 fl (7.5-11.1) 09/09/18 06:25 CMP Sodium 134 mmol/L (136-145) L 09/09/18 06:25 Potassium 3.6 mmol/L (3.5-5.1) 09/09/18 06:25 Chloride 95 mmol/L (98-107) L 09/09/18 06:25 Carbon Dioxide 32 mmol/L (21-32) 09/09/18 06:25 Anion Gap 8 MMOL/L (8-16) 09/09/18 06:25 BUN 18.1 mg/dL (7-18) H 09/09/18 06:25 Creatinine 1.0 mg/dL (0.55-1.3) 09/09/18 06:25 Random Glucose 274 mg/dL (74-106) H 09/09/18 06:25 Calcium 9.5 mg/dL (8.5-10.1) 09/09/18 06:25 Total Bilirubin 0.6 mg/dL (0.2-1) 09/09/18 06:25 AST 8 U/L (15-37) L 09/09/18 06:25 ALT 31 U/L (13-61) 09/09/18 06:25 Alkaline Phosphatase 85 U/L (45-117) 09/09/18 06:25 Total Protein 7.2 g/dl (6.4-8.2) 09/09/18 06:25 Albumin 3.7 g/dl (3.4-5.0) 09/09/18 06:25 CARDIAC ENZYMES Creatine Kinase 68 U/L (26-308) 09/06/18 19:30 Troponin I < 0.02 ng/ml (0.00-0.05) 09/07/18 00:15 Imaging Carotid Doppler - completed, report pending ASSESSMENT/PLAN: 58 y/o M hx of DM, HTN, carpal tunnel, MS 2014 s/p PCI x3, then PCI x2 again 2016, presented to ER with lightheadedness/vertigo day prior to admission ( feels more like lightheadedness), worsens with standing. Went to [facility] day prior to admission, had labs completed and EKG completed which were normal. Pt was prescribed Meclizine but stated that it has not been helping. Pt stated on admission that he is now feeling off balance; dizziness is not with head movementn non-positional. Patient orthostatic positive. Denied fever, sob, cp, abd pain, n/v, visual changes, numbness/tingling/weakness of extremities, tinnitus, hearing loss. Patient received 1L NS bolus in ER. Head Ct completed, mild to moderate periventricular and subcortical microvascular ischemic changes. Brain MRI ordered. Carotid Doppler completed, report pending. COntinue hydration, physical therapy. Fall precautions. Avoid meclezine though would think it would help. Discussed with family at bedside as well. DDue to stents MRI not able to be done, repeat CT completed. Is doing better and less symptomatic, informed him that valium may be helping. Reviewed repeat CT head, no acute changes. Carotid doppler without hemodynamically significant stenosis. Maintain adequate hydration, vestibular therapy as outpatient may be of benefit.
[2018-09-10] MEDS: POLYETHYLENE GLYCOL 3350 119 GM BTL PO SCH (09:46)
[2018-09-10] MEDS: HYDROCHLOROTHIAZIDE 12.5 MG CAPSULE (FP) PO SCH (09:46)
[2018-09-10] MEDS: CLOPIDOGREL BISULFATE 75 MG TABLET (FP) PO SCH (09:46)
[2018-09-10] MEDS: CARVEDILOL 25 MG TABLET (FP) PO SCH (09:46)
[2018-09-10] MEDS: LISINOPRIL 20 MG TABLET (FP) PO SCH (09:46)
[2018-09-10 10:23] VITALS: BP 169/94; PULSE 66; TEMP 98.1
--- NOTE | 2018-09-10 11:17 | PN ---
Progress Note, Physician Chief Complaint: Dizziness History of Present Illness: complaining for mild dizziness when he sits at the edge of the bed echo done,Echocardiogram 09/09/18 low normal EF 50-55%, moderately dilated ascending aortic aneurysm 5.2cm trace to mild mr, trace AI/TR Seen by Neurology Pt is on HIV meds, but doesn't take them regularly, goes to [facility], has not been there in a while CTA chest taken for aortic aneurysm, awaiting results. If aneurysm <5.5, observe ; if greater than 5.5 cm- would need to be transferred to tertiary care center - Current Medication List Current Medications: Active Medications Atorvastatin Calcium (Lipitor -) 40 mg PO HS [facility] Last Admin: 09/09/18 22:05 Dose: 40 mg Carvedilol (Coreg -) 25 mg PO BID [facility] Last Admin: 09/10/18 09:46 Dose: 25 mg Clopidogrel Bisulfate (Plavix -) 75 mg PO DAILY [facility] Last Admin: 09/10/18 09:46 Dose: 75 mg Diazepam (Valium -) 2 mg PO Q8H PRN PRN Reason: DIZZYNESS Last Admin: 09/09/18 06:48 Dose: 2 mg Emtricitabine/Rilpivirine/Tenofovir (Complera -) 1 each PO DAILY@0800 [facility] Last Admin: 09/09/18 15:22 Dose: 1 each Glipizide (Glucotrol -) 10 mg PO BID@0700,1630 [facility] Last Admin: 09/10/18 06:34 Dose: 10 mg Heparin Sodium (Porcine) (Heparin -) 5,000 unit SQ TID [facility] Last Admin: 09/10/18 06:34 Dose: 5,000 unit Hydrochlorothiazide (Hctz -) 12.5 mg PO DAILY [facility] Last Admin: 09/10/18 09:46 Dose: 12.5 mg Insulin Aspart (Novolog Vial Sliding Scale -) 1 vial SQ ACHS [facility]; Protocol Last Admin: 09/10/18 06:38 Dose: 4 units Lisinopril (Prinivil) 10 mg PO DAILY [facility] Meclizine HCl (Antivert -) 25 mg PO TID PRN PRN Reason: vert Polyethylene Glycol (Miralax (For Daily Use) -) 17 gm PO DAILY [facility] Last Admin: 09/10/18 09:46 Dose: 17 grams - Objective Vital Signs: Vital Signs Temperature 98.1 F 09/10/18 09:00 Pulse Rate 66 09/10/18 09:00 Respiratory Rate 20 09/10/18 09:00 Blood Pressure 169/94 09/10/18 09:00 O2 Sat by Pulse Oximetry (%) 97 09/10/18 09:00 Constitutional: Yes: Well Nourished, No Distress, Calm Cardiovascular: Yes: Regular Rate and Rhythm Respiratory: Yes: Regular Gastrointestinal: Yes: WNL, Normal Bowel Sounds, Soft, Abdomen, Obese Genitourinary: Yes: WNL Musculoskeletal: Yes: WNL Extremities: Yes: WNL Edema: No Peripheral Pulses WNL: Yes Neurological: Yes: Alert, Oriented Psychiatric: Yes: Alert, Oriented Labs: CBC, BMP 09/09/18 06:25 09/09/18 06:25 INR, PTT INR 1.14 (0.83-1.09) H 09/07/18 07:28 Problem List - Problems (1) Constipation Assessment/Plan: -Add miralax daily Code(s): K59.00 - CONSTIPATION, UNSPECIFIED (2) HIV disease Assessment/Plan: -Continue complera -Encouraged compliance and implications of missing dosages Code(s): B20 - HUMAN IMMUNODEFICIENCY VIRUS [HIV] DISEASE (3) Aortic aneurysm Assessment/Plan: -seen by cardiology -CTA results pending -If aneurysm <5.5, observe; if greater than 5.5 cm- would need to be transferred to tertiary care center Code(s): I71.9 - AORTIC ANEURYSM OF UNSPECIFIED SITE, WITHOUT RUPTURE Assessment/Plan (1) HTN (hypertension) Assessment/Plan: -Carvedilol, Lisinopril, HCTZ -Lisinopril decreased to 10 mg po daily -May decrease carvidilol to 12.5 mg po bid-taper to standing BP's -low Na diet -D/C IVF Code(s): I10 - ESSENTIAL (PRIMARY) HYPERTENSION (2) Diabetes mellitus Assessment/Plan: -BGM ACHS -ISS -HgA1c 7.4% -resume glipizide -resume metformin upon discharge -diabetic low sodium diet Code(s): E11.9 - TYPE 2 DIABETES MELLITUS WITHOUT COMPLICATIONS (3) Dizziness Assessment/Plan: -Neurology on board -Valium -Unable to do MRI due to cardiac stents -Head CT scan negative for acute pathology -Carotid US-negative -Echo pending- d/c home if negative -Significant orthostatic hypotension Code(s): R42 - DIZZINESS AND GIDDINESS (4) CAD (coronary artery disease) Assessment/Plan: -Plavix Code(s): I25.10 - ATHSCL HEART DISEASE OF [place] CORONARY ARTERY W/O ANG PCTRS
[2018-09-11] MEDS ORDERED: LISINOPRIL 10 MG TABLET (FP) PO SCH (10:00)
== END 2018-09-10 15:00 | disposition home or self-care (01) ==
LOC: JER 18:22 → JERBED 23:20 → J4W 09-07 04:23
PROVIDERS: ADMIT Internal Medicine; ATTEND Family Medicine
PROC: 3E0337Z Introduction of Electrolytic and Water Balance Substance into Peripheral Vein, Percutaneous Approach (ICD-10-PCS; principal; 2018-09-06)
PROC: 3E013VG Introduction of Insulin into Subcutaneous Tissue, Percutaneous Approach (ICD-10-PCS; 2018-09-06)
PROC: 3E013GC Introduction of Other Therapeutic Substance into Subcutaneous Tissue, Percutaneous Approach (ICD-10-PCS; 2018-09-06)
DX: R42 Dizziness and giddiness (principal); R27.0 Ataxia, unspecified; I10 Essential (primary) hypertension; E11.65 Type 2 diabetes mellitus with hyperglycemia; I25.10 Atherosclerotic heart disease of native coronary artery without angina pectoris; I25.2 Old myocardial infarction; K59.00 Constipation, unspecified; B20 Human immunodeficiency virus [HIV] disease; I71.9 Aortic aneurysm of unspecified site, without rupture; G56.03 Carpal tunnel syndrome, bilateral upper limbs; E66.9 Obesity, unspecified; Z68.38 Body mass index [BMI] 38.0-38.9, adult; Z95.5 Presence of coronary angioplasty implant and graft; Z79.84 Long term (current) use of oral hypoglycemic drugs
CPT/HCPCS: 36415; 70450-TC; 71045-TC-FY; 71275-TC; 74019-TC-FY; 80053; 80061; 81003; 82550; 82607; 82962; 83036; 83721; 83735; 83880; 84100; 84443; 84484; 85025; 85027; 85610; 85730; 93005; 93010; 93306-TC; 93880-TC; 96360; 96372; 99284-25; G0378; J1644; J7030